=== PATIENT | female | born 1965 | race Caucasian/White ===

== ENCOUNTER 2020-04-21 14:11 | Outpatient (REF) | payer MEDICARE, MEDICAID, SELFPAY ==
[2020-04-21 16:34] LABS: Hemoglobin 12.7 g/dl (12.0-16.0)
[2020-04-21 16:45] LABS: Estimated Average Glucose 134 mg/dL; Hemoglobin A1c % 6.3 %
[2020-04-21 17:07] LABS: Anion Gap 13 (12-20); Blood Urea Nitrogen 9 mg/dL (9-16); Calcium 8.4 mg/dL (8.4-10.2); Carbon Dioxide 32 mmol/L (22-29); Chloride 97 mmol/L (96-108); Estimated Glomerular Filt Rate > 60; Glucose Random 134 mg/dL (60-115); Potassium 4.2 mmol/L (3.3-5.1); Sodium 138 mmol/L (135-145)
[2020-04-23 00:32] LABS: LDL Cholesterol Direct 80 mg/dL (<100)
== END 2020-04-21 14:12 | disposition home or self-care (01) ==
LOC: HO.HMGCLDS 14:11
PROVIDERS: PCP Internal Medicine; Visit Provider Internal Medicine
DX: Z20.822 Contact with and (suspected) exposure to COVID-19 (principal); L03.119 Cellulitis of unspecified part of limb; I87.2 Venous insufficiency (chronic) (peripheral); E13.9 Other specified diabetes mellitus without complications; Z72.0 Tobacco use
CPT/HCPCS: 36415; 80048; 83036; 83721; 85018; U0003; U0005

== ENCOUNTER 2020-05-26 14:23 | Outpatient (RCR) | payer MEDICARE, MEDICAID, SELFPAY | END 2020-09-27 12:52 | disposition home or self-care (01) | LOC: HO.WCC 14:23 | PROVIDERS: Visit Provider Physician Assistant | DX: E10.622 Type 1 diabetes mellitus with other skin ulcer (principal); L97.211 Non-pressure chronic ulcer of right calf limited to breakdown of skin; I87.311 Chronic venous hypertension (idiopathic) with ulcer of right lower extremity; E10.65 Type 1 diabetes mellitus with hyperglycemia; I89.0 Lymphedema, not elsewhere classified; F17.210 Nicotine dependence, cigarettes, uncomplicated; F12.90 Cannabis use, unspecified, uncomplicated; Z71.6 Tobacco abuse counseling; Z72.89 Other problems related to lifestyle; Z79.891 Long term (current) use of opiate analgesic | CPT/HCPCS: 11042; 11045; 15271; 15272; 29581; 97597; 97598; 99212; 99213; Q4101 ==

== ENCOUNTER 2020-12-25 10:08 | Outpatient (RCR) | payer MEDICARE, MEDICAID, SELFPAY | END 2021-01-30 15:59 | disposition home or self-care (01) | LOC: HO.WCC 10:08 | PROVIDERS: PCP Internal Medicine; Visit Provider Physician Assistant | DX: E11.622 Type 2 diabetes mellitus with other skin ulcer (principal); I87.331 Chronic venous hypertension (idiopathic) with ulcer and inflammation of right lower extremity; L97.212 Non-pressure chronic ulcer of right calf with fat layer exposed; I89.0 Lymphedema, not elsewhere classified; E11.65 Type 2 diabetes mellitus with hyperglycemia; F17.210 Nicotine dependence, cigarettes, uncomplicated; F12.90 Cannabis use, unspecified, uncomplicated; Z72.89 Other problems related to lifestyle; J44.9 Chronic obstructive pulmonary disease, unspecified; Z71.6 Tobacco abuse counseling; Z79.4 Long term (current) use of insulin | CPT/HCPCS: 11042; 29581; 99212; 99213 ==

== ENCOUNTER 2021-01-10 14:47 | Outpatient (REF) | payer MEDICARE, MEDICAID, SELFPAY ==
[2021-01-10 16:26] LABS: MANUAL DIFF FLAG NO
[2021-01-10 16:31] LABS: Basophils Absolute Auto 0.1 X10*3/uL (0.0-0.2); Basophils Percent Auto 1.4 % (0-2); Eosinophils Absolute Auto 0.2 X10*3/uL (0.0-0.4); Eosinophils Percent Auto 4.9 % (0-4); Hematocrit 38.7 % (37-47); Hemoglobin 12.9 g/dl (12.0-16.0); Lymphocytes Absolute Auto 1.5 X10*3/uL (1.2-4.9); Lymphocytes Percent Auto 40.4 % (20-40); Mean Corpuscular HGB Conc 33.3 g/dl (31.0-35.0); Mean Corpuscular Hemoglobin 32.8 pg (27.0-33.0); Mean Corpuscular Volume 98.5 fL (80-98); Mean Platelet Volume 9.6 fL (9.4-12.3); Monocytes Absolute Auto 0.4 X10*3/uL (0.1-1.2); Monocytes Percent Auto 9.8 % (2-11); Neutrophils Absolute Auto 1.6 X10*3/uL (2.0-8.3); Neutrophils Percent Auto 43.5 % (45-73); Platelet Count 258 X10*3/uL (160-400); Red Blood Count 3.93 X10*6/uL (4.20-5.50); Red Cell Distribution Width 12.7 % (11.0-16.0); White Blood Count 3.7 X10*3/uL (4.8-10.8)
[2021-01-10 16:42] LABS: Estimated Average Glucose 140 mg/dL; Hemoglobin A1c % 6.5 %
[2021-01-10 16:56] LABS: Alanine Aminotransferase 38 U/L (0-31); Albumin Level 3.9 g/dL (3.5-5.0); Alkaline Phosphatase 170 U/L (39-117); Anion Gap 11 (12-20); Aspartate Amino Transferase 73 U/L (5-31); Bilirubin Total 0.4 mg/dL (0.0-1.0); Blood Urea Nitrogen 12 mg/dL (9-16); Calcium 8.8 mg/dL (8.4-10.2); Carbon Dioxide 30 mmol/L (22-29); Chloride 101 mmol/L (96-108); Estimated Glomerular Filt Rate > 60; Glucose Random 61 mg/dL (60-115); Potassium 4.4 mmol/L (3.3-5.1); Sodium 138 mmol/L (135-145); Total Protein 6.8 g/dL (6.5-8.0)
[2021-01-10 17:17] LABS: TSH reflex Free T4 4.17 uIU/mL (0.32-4.0)
[2021-01-10 17:23] LABS: Vitamin B12 498 pg/mL (200-900)
[2021-01-10 17:52] LABS: Free T4 (Free Thyroxine) 0.83 ng/dL (0.71-1.85)
[2021-01-11 08:00] LABS: LDL Cholesterol Direct 73 mg/dL (<100)
[2021-01-14 13:17] LABS: Vitamin D 25-OH, D2 <4 ng/mL; Vitamin D 25-OH, D3 6 ng/mL; Vitamin D 25-OH, Total 6 ng/mL (30-100)
== END 2021-01-10 14:48 | disposition home or self-care (01) ==
LOC: HO.HMGCLDS 14:47
PROVIDERS: PCP Internal Medicine; Visit Provider Internal Medicine
DX: F41.1 Generalized anxiety disorder (principal); F98.8 Other specified behavioral and emotional disorders with onset usually occurring in childhood and adolescence; F33.2 Major depressive disorder, recurrent severe without psychotic features; F10.20 Alcohol dependence, uncomplicated; E11.40 Type 2 diabetes mellitus with diabetic neuropathy, unspecified; I73.9 Peripheral vascular disease, unspecified; I87.2 Venous insufficiency (chronic) (peripheral); H53.8 Other visual disturbances; Z72.0 Tobacco use; Z79.4 Long term (current) use of insulin
CPT/HCPCS: 36415; 80053; 82306; 82607; 83036; 83721; 84439; 84443; 85025

== ENCOUNTER 2021-07-17 10:30 | Outpatient (REF) | payer MEDICARE, MEDICAID, SELFPAY ==
--- NOTE | ~2021-07-17 | MM_ITS ---
EXAMINATION: BONE DENSITOMETRY CLINICAL INDICATION: Encounter for other screening for malignant neoplasm. COMPARISON: None (current study represents initial baseline exam). TECHNIQUE: Using a [employer] DXA System (software version: 13.1) manufactured by [employer], dual-energy x-ray absorptiometry was performed of the lumbar spine and left hip. The images are of good technical quality. Summary results are attached. FINDINGS: AP SPINE L1-L3 (excluding L4): The data of L1-L4 has been changed to exclude the L4 vertebral body, because degenerative changes at this level may cause overestimation of lumbar spine density. BMD 1.091 g/cm2, Z-score -0.2, T-score -0.7, normal. LEFT FEMUR, NECK: BMD 0.465 g/cm2, Z-score -3.4, T-score -4.1, osteoporosis. LEFT FEMUR, TOTAL: BMD 0.605 g/cm2, Z-score -2.8, T-score -3.2, osteoporosis. IDENTIFIED RISK FACTORS: Low calcium intake, secondary osteoporosis, tobacco use (current smoker), 3 or more drinks per day, menopause. HISTORY OF FRACTURE: None listed. MEDICATIONS: None listed. MM/XR DEXA axial skeleton IMPRESSION: 1. DIAGNOSIS: Osteoporosis based on the lowest T-score value of -4.1 in the femoral neck applying World Health Organization criteria. 2. 10-YEAR FRACTURE RISK PREDICTION, FRAX: According to the guidelines, FRAX calculation should only be performed on patients in the osteopenia bone density category. Therefore, FRAX was not performed on this patient. 3. Treatment Recommendations: NOF guidelines recommend consideration for treatment in postmenopausal women and men age 50 and older presenting with the following: -A hip or vertebral (clinical or morphometric) fracture. -T-score less than or equal to -2.5 at the femoral neck or spine after appropriate evaluation to exclude secondary causes. -Low bone mass at the hip or spine and a 10-year fracture probability by FRAX of greater than or equal to 3% for hip fracture or greater than or equal to 20% for major osteoporotic fracture based on the [place] adapted WHO algorithm. 4. Other Recommendations: All treatment decisions require clinical judgment and consideration of individual patient factors, including patient preferences, comorbidities, previous drug use, risk factors not captured in the FRAX model (e.g. frailty, falls, vitamin D deficiency, increased bone turnover, interval significant decline in bone density) and possible under or overestimation of fracture risk by FRAX. Additional medical evaluation for secondary cause of low bone mineral density may be appropriate. FUTURE SCAN RECOMMENDATION: People with diagnosed cases of osteoporosis or at high risk for fracture should have regular bone mineral density tests. For patients eligible for Medicare, routine testing is allowed once every 2 years. The testing frequency can be increased to one year for patients who have rapidly progressing disease, those who are receiving or discontinuing medical therapy to restore bone mass, or have additional risk factors.
--- NOTE | ~2021-07-17 | MM_ITS ---
EXAMINATION: MM SCREENING DIGITAL BREAST TOMOSYNTHESIS, BILATERAL CLINICAL INFORMATION: Screening. Asymptomatic. The lifetime risk of breast cancer based on the Tyrer-Cuzick Model is 8%. COMPARISON: Mammography: 11/22/2016; outside exam 01/12/2007 and 05/09/2005 ([facility]) TECHNIQUE: Digital breast tomosynthesis is performed in both the craniocaudal and mediolateral oblique views along with computer-aided detection (CAD). Synthesized 2D images are generated from the tomosynthesis. FINDINGS: There are scattered areas of fibroglandular density (ACR BI-RADS breast composition Category b). The breasts are symmetrically smaller and symmetrically mildly increased in attenuation consistent with weight loss. There are scattered shifting fibroglandular parenchymal densities overall similar to prior exam 2017. No developing density or interval mass or architectural abnormality. No abnormal calcifications. The axilla are unremarkable. MM/MM tomosynthesis screening BI IMPRESSION: -Breast symmetrically smaller and mildly increased in attenuation consistent with weight loss. -Otherwise, no significant changes from prior study. ASSESSMENT: BI-RADS 2: Benign RECOMMENDATION: Routine annual mammography screening. This patient's information was entered into a reminder system with a target due date for their next mammogram.
== END 2021-07-17 10:31 | disposition home or self-care (01) ==
LOC: HO.MAMMO 10:30
PROVIDERS: Visit Provider Internal Medicine
DX: Z12.31 Encounter for screening mammogram for malignant neoplasm of breast (principal); Z13.820 Encounter for screening for osteoporosis; Z78.0 Asymptomatic menopausal state; M81.0 Age-related osteoporosis without current pathological fracture
CPT/HCPCS: 77063; 77067; 77080

== ENCOUNTER 2021-08-15 11:11 | Outpatient (REF) | payer MEDICARE, MEDICAID, SELFPAY ==
[2021-08-15 13:44] LABS: MANUAL DIFF FLAG NO
[2021-08-15 13:59] LABS: Basophils Absolute Auto 0.1 X10*3/uL (0.0-0.2); Basophils Percent Auto 1.2 % (0-2); Eosinophils Absolute Auto 0.1 X10*3/uL (0.0-0.4); Eosinophils Percent Auto 2.4 % (0-4); Hematocrit 38.3 % (37.0-47.0); Imm Gran Abs Auto 0.01 X10*3/uL (0.00-0.03); Imm Gran Pct Auto 0.2 % (0.0-0.4); Lymphocytes Absolute Auto 1.6 X10*3/uL (1.2-4.9); Lymphocytes Percent Auto 33.1 % (20-40); Mean Corpuscular HGB Conc 33.9 g/dl (31.0-35.0); Mean Corpuscular Hemoglobin 33.2 pg (27.0-33.0); Mean Corpuscular Volume 97.7 fL (80.0-98.0); Monocytes Absolute Auto 0.5 X10*3/uL (0.1-1.2); Monocytes Percent Auto 9.3 % (2-11); Neutrophils Absolute Auto 2.7 x10*3/uL (2.0-8.3); Neutrophils Percent Auto 53.8 % (45-73); Platelet Count 218 X10*3/uL (160-400); Red Blood Count 3.92 X10*6/uL (4.20-5.50); Red Cell Distribution Width 12.3 % (11.0-16.0)
[2021-08-15 14:20] LABS: TSH reflex Free T4 3.54 uIU/mL (0.32-4.0)
[2021-08-15 14:43] LABS: Alanine Aminotransferase 37 U/L (0-31); Albumin Level 3.9 g/dL (3.5-5.0); Alkaline Phosphatase 176 U/L (39-117); Anion Gap 15 (12-20); Aspartate Amino Transferase 53 U/L (5-31); Bilirubin Total 0.5 mg/dL (0.0-1.0); Blood Urea Nitrogen 7 mg/dL (9-16); Calcium 9.3 mg/dL (8.4-10.2); Carbon Dioxide 28 mmol/L (22-29); Chloride 99 mmol/L (96-108); Cholesterol 204 mg/dL; Estimated Glomerular Filt Rate > 60; Glucose Random 223 mg/dL (60-115); HDL Cholesterol 102 mg/dL; LDL Cholesterol Calculated 78 mg/dl; Potassium 3.7 mmol/L (3.3-5.1); Sodium 138 mmol/L (135-145); Total Protein 6.7 g/dL (6.5-8.0); Triglycerides 122 mg/dL
== END 2021-08-15 11:12 | disposition home or self-care (01) ==
LOC: HO.HMGCLDS 11:11
PROVIDERS: PCP Internal Medicine; Visit Provider Internal Medicine
DX: Z00.01 Encounter for general adult medical examination with abnormal findings (principal); E11.40 Type 2 diabetes mellitus with diabetic neuropathy, unspecified; F33.2 Major depressive disorder, recurrent severe without psychotic features; I87.2 Venous insufficiency (chronic) (peripheral); N39.3 Stress incontinence (female) (male); Z72.0 Tobacco use
CPT/HCPCS: 36415; 80053; 80061; 84443; 85025

== ENCOUNTER 2021-11-06 13:06 | Outpatient (RCR) | payer MEDICARE, MEDICAID, SELFPAY | END 2021-11-23 09:12 | disposition home or self-care (01) | LOC: HO.WCC 13:06 | PROVIDERS: PCP Internal Medicine; Visit Provider Physician Assistant | DX: Z09 Encounter for follow-up examination after completed treatment for conditions other than malignant neoplasm (principal); I87.303 Chronic venous hypertension (idiopathic) without complications of bilateral lower extremity; E11.40 Type 2 diabetes mellitus with diabetic neuropathy, unspecified; J44.9 Chronic obstructive pulmonary disease, unspecified; F17.210 Nicotine dependence, cigarettes, uncomplicated; F11.20 Opioid dependence, uncomplicated; F12.90 Cannabis use, unspecified, uncomplicated; Z87.2 Personal history of diseases of the skin and subcutaneous tissue | CPT/HCPCS: 11042; 29580; 99212; 99213 ==

== ENCOUNTER 2022-02-19 | Outpatient (RCR) | payer MEDICARE, MEDICAID, SELFPAY | END 2022-05-01 16:30 | disposition home or self-care (01) | LOC: HO.WCC | PROVIDERS: PCP Internal Medicine; Visit Provider Physician Assistant | DX: L97.812 Non-pressure chronic ulcer of other part of right lower leg with fat layer exposed (principal); Q82.0 Hereditary lymphedema; I87.2 Venous insufficiency (chronic) (peripheral) | CPT/HCPCS: 11042; 15271; 99212; Q4160 ==

== ENCOUNTER 2022-02-19 12:02 | Outpatient (REF) | payer MEDICARE, MEDICAID, SELFPAY ==
[2022-02-19 14:09] LABS: MANUAL DIFF FLAG NO
[2022-02-19 14:21] LABS: Basophils Absolute Auto 0.1 X10*3/uL (0.0-0.2); Basophils Percent Auto 1.4 % (0-2); Eosinophils Absolute Auto 0.3 X10*3/uL (0.0-0.4); Hemoglobin 12.7 g/dl (12.0-16.0); Imm Gran Abs Auto 0.01 X10*3/uL (0.00-0.03); Imm Gran Pct Auto 0.2 % (0.0-0.4); Lymphocytes Absolute Auto 2.1 X10*3/uL (1.2-4.9); Lymphocytes Percent Auto 44.3 % (20-40); Mean Corpuscular HGB Conc 34.3 g/dl (31.0-35.0); Mean Corpuscular Hemoglobin 33.9 pg (27.0-33.0); Mean Corpuscular Volume 98.7 fL (80.0-98.0); Mean Platelet Volume 9.6 fL (9.4-12.3); Monocytes Absolute Auto 0.5 X10*3/uL (0.1-1.2); Monocytes Percent Auto 9.5 % (2-11); Neutrophils Absolute Auto 1.9 x10*3/uL (2.0-8.3); Neutrophils Percent Auto 38.6 % (45-73); Platelet Count 262 X10*3/uL (160-400); Red Blood Count 3.75 X10*6/uL (4.20-5.50); Red Cell Distribution Width 11.7 % (11.0-16.0); White Blood Count 4.8 X10*3/uL (4.8-10.8)
[2022-02-19 14:34] LABS: Estimated Average Glucose 151 mg/dL; Hemoglobin A1c % 6.9 %
[2022-02-19 14:53] LABS: Creatinine Urine 63.82 mg/dL
[2022-02-19 14:54] LABS: Alanine Aminotransferase 33 U/L (0-31); Alkaline Phosphatase 173 U/L (39-117); Anion Gap 9 (12-20); Aspartate Amino Transferase 50 U/L (5-31); Bilirubin Total 0.5 mg/dL (0.0-1.0); Blood Urea Nitrogen 10 mg/dL (9-16); Calcium 8.8 mg/dL (8.4-10.2); Carbon Dioxide 31 mmol/L (22-29); Chloride 103 mmol/L (96-108); Estimated Glomerular Filt Rate > 60; Glucose Random 156 mg/dL (60-115); Sodium 139 mmol/L (135-145); TSH reflex Free T4 3.46 uIU/mL (0.32-4.0); Total Protein 6.6 g/dL (6.5-8.0)
== END 2022-02-19 12:03 | disposition home or self-care (01) ==
LOC: HO.HMGCLDS 12:02
PROVIDERS: PCP Internal Medicine; Visit Provider Internal Medicine
DX: E11.40 Type 2 diabetes mellitus with diabetic neuropathy, unspecified (principal); I73.9 Peripheral vascular disease, unspecified; F10.20 Alcohol dependence, uncomplicated; F33.2 Major depressive disorder, recurrent severe without psychotic features; F41.1 Generalized anxiety disorder; G47.30 Sleep apnea, unspecified; R79.89 Other specified abnormal findings of blood chemistry; Z79.4 Long term (current) use of insulin; Z72.0 Tobacco use
CPT/HCPCS: 36415; 80053; 82043; 83036; 84443; 85025

== ENCOUNTER 2022-06-21 10:36 | Outpatient (REF) | payer MEDICARE, MEDICAID, SELFPAY ==
[2022-06-21 12:00] LABS: Hematocrit 37.5 % (37.0-47.0); Hemoglobin 12.8 g/dl (12.0-16.0)
[2022-06-21 12:06] LABS: Estimated Average Glucose 137 mg/dL; Hemoglobin A1c % 6.4 %
[2022-06-21 12:30] LABS: Alanine Aminotransferase 22 U/L (0-31); Albumin Level 3.7 g/dL (3.5-5.0); Alkaline Phosphatase 160 U/L (39-117); Anion Gap 15 (12-20); Aspartate Amino Transferase 36 U/L (5-31); Bilirubin Total 0.4 mg/dL (0.0-1.0); Blood Urea Nitrogen 8 mg/dL (9-16); Calcium 9.3 mg/dL (8.4-10.2); Carbon Dioxide 30 mmol/L (22-29); Chloride 100 mmol/L (96-108); Estimated Glomerular Filt Rate > 60; Glucose Random 202 mg/dL (60-115); Potassium 3.6 mmol/L (3.3-5.1); Sodium 141 mmol/L (135-145); Total Protein 6.2 g/dL (6.5-8.0)
[2022-06-21 12:40] LABS: TSH reflex Free T4 5.78 uIU/mL (0.32-4.0)
[2022-06-21 13:13] LABS: Free T4 (Free Thyroxine) 0.85 ng/dL (0.71-1.85)
== END 2022-06-21 10:37 | disposition home or self-care (01) ==
LOC: HO.HMGCLDS 10:36
PROVIDERS: PCP Internal Medicine; Visit Provider Internal Medicine
DX: Z01.818 Encounter for other preprocedural examination (principal); E13.51 Other specified diabetes mellitus with diabetic peripheral angiopathy without gangrene; R94.31 Abnormal electrocardiogram [ECG] [EKG]; I51.7 Cardiomegaly; R79.89 Other specified abnormal findings of blood chemistry; Z72.0 Tobacco use; Z79.4 Long term (current) use of insulin
CPT/HCPCS: 36415; 80053; 83036; 84439; 84443; 85014; 85018

== ENCOUNTER 2022-10-01 12:54 | Outpatient (AMB) | payer MEDICARE, MEDICAID, SELFPAY ==
--- NOTE | 2022-10-01 12:05 | MHC.PC.OV ---
Intake Visit Reasons: 2m t/v Allergies Penicillins [PENICILLINS] Allergy (Unknown, Verified 10/01/22 12:05) nausea Environmental Allergy (Unknown, Uncoded 02/13/21 11:06) Unknown From TYLENOL-CODEINE Allergy (Unknown, Uncoded 02/13/21 11:06) UNKNOWN Medication List - Last Reconciled 10/01/22 by Felicia Gonzalez MD albuterol sulfate 90 mcg/actuation 2 puffs inhalation Q6H PRN 30 days buprenorphine-naloxone 8-2 mg sublingual dextroamphetamine-amphetamine 20 mg ER 20 mg PO DAILY [Diabetic shoes As directed] furosemide (Lasix) 20 mg PO DAILY 90 days insulin aspart U-100 subcut levothyroxine 50 mcg PO DAILY loratadine 10 mg PO DAILY 90 days paroxetine HCl (Paxil) 40 mg PO DAILY triamcinolone acetonide 0.1% 1 appl topical DAILY 30 days Tobacco use date assessed: 10/01/22 Dental Screening Dental Screen Date: 10/01/22 Did you have a dental visit in the last 12 months?: Yes Did you have a dental problem in the last 6 months where you did not have access to dental care?: No Was dental information given to patient?: No HPI 2m t/v HPI Details Patient is a 57-year-old female who was started on levothyroxine 50 mcg and her TSH level came back abnormal She was supposed to have labs done before this visit so we can talk about her hypothyroidism but she did not Reminded patient to have it done as soon as possible and we will book another appointment to go over it. 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 Maternal Grandfather No problems noted. Maternal Grandmother Breast cancer Paternal Grandfather No problems noted. Paternal Grandmother No problems noted. Brother No problems noted. Brother No problems noted. Brother No problems noted. Sister No problems noted. Son No problems noted. Daughter No problems noted. Other Mental health disorder Substance use disorder Social History Housing: House Alcohol intake: current Alcohol intake frequency: 3 or more drinks per day Patient Tobacco Use Status: Current everyday Tobacco user Cigarettes Per Day: 10 e-Cigarette/Vaping Use: Never Used service: No Current occupational status: disabled Cognitive needs: No Hearing needs: No Vision needs: No Questionnaire Thrive Questionnaire Date Thrive assessed: 08/15/21 AUDIT C Alcohol Use Questionnaire (AUDIT-C) 1. How often do you have a drink containing alcohol?: Monthly or less 2. How many drinks containing alcohol do you have on a typical day when you are drinking?: 1 or 2 3. How often do you have six or more drinks on one occasion?: Never Total Score: 1 Score Reviewed/Action Taken: Yes Review of Systems Const Denies chills and Denies fever(s) ENT Denies epistaxis and Denies nasal discharge Card Denies chest pain Resp Denies chest congestion, Denies cough and Denies hemoptysis GI Denies diarrhea and Denies nausea Skin/Breast Denies rash Neuro Reports no additional complaints Psych Reports no additional complaints Endo Reports no additional complaints Physical exam (Primary Care) Tobacco/Smoking Status: Tobacco use Status Tobacco use date assessed 10/01/22 10/01/22 12:06 Patient Tobacco Use Status Current everyday Tobacco 10/01/22 12:06 e-Cigarette/Vaping Use Never Used 10/01/22 12:06 Thrive Assessment: Date of Thrive Assessment Date Thrive assessed 08/15/21 10/01/22 12:06 Telehealth Telehealth Location of provider rendering services: practice address Location of patient: address on file Patient Identification confirmed using: Name, : Yes Telehealth method: voice only Patient verbally consented to treatment: Yes Patient verbally consented to billing insurance company: Yes Patient informed of any privacy concerns related to visit: Yes Minutes spent on Phone/Video with Pt.: 11 Assessment and Plan Assessment & Plan (1) Elevated TSH: Code(s): R79.89 - Other specified abnormal findings of blood chemistry Plan Patient is a 57-year-old female who was started on levothyroxine 50 mcg and her TSH level came back abnormal She was supposed to have labs done before this visit so we can talk about her hypothyroidism but she did not Reminded patient to have it done as soon as possible and we will book another appointment to go over it. Coding Level of Care Code Tele Est Pt Level 3 (37257) Diagnoses Elevated TSH R79.89
== END 2022-10-01 13:37 | disposition home or self-care (01) ==
PROVIDERS: PCP Internal Medicine; Visit Provider Internal Medicine
DX: R79.89 Other specified abnormal findings of blood chemistry (principal)
CPT/HCPCS: 99442

== ENCOUNTER 2023-01-28 12:18 | Outpatient (REF) | payer MEDICARE, MEDICAID, SELFPAY ==
[2023-01-28 14:00] LABS: Estimated Average Glucose 128 mg/dL; Hemoglobin A1c % 6.1 % (<6.0)
[2023-01-28 14:04] LABS: Anion Gap 12 (12-20); Blood Urea Nitrogen 6 mg/dL (9-16); Calcium 8.9 mg/dL (8.4-10.2); Carbon Dioxide 30 mmol/L (22-29); Chloride 104 mmol/L (96-108); Estimated Glomerular Filt Rate > 60; Ethanol 13 mg/dL; Glucose Random 141 mg/dL (60-115); Potassium 3.5 mmol/L (3.3-5.1); Sodium 142 mmol/L (135-145)
[2023-01-28 14:24] LABS: TSH reflex Free T4 4.46 uIU/mL (0.32-4.0)
[2023-01-28 15:02] LABS: Free T4 (Free Thyroxine) 0.87 ng/dL (0.71-1.85)
== END 2023-01-28 12:19 | disposition home or self-care (01) ==
LOC: HO.HMGCLDS 12:18
PROVIDERS: PCP Internal Medicine; Visit Provider Internal Medicine
DX: R79.89 Other specified abnormal findings of blood chemistry (principal); E13.9 Other specified diabetes mellitus without complications; F10.20 Alcohol dependence, uncomplicated
CPT/HCPCS: 36415; 80048; 80307; 83036; 84439; 84443

== ENCOUNTER 2023-07-22 14:37 | Outpatient (AMB) | payer MEDICARE, MEDICAID, SELFPAY ==
--- NOTE | 2023-07-22 14:41 | MHC.PC.OV ---
Vital Signs 07/22/23 14:45 Height 5 ft 1 in Weight 167 lb 2 oz BMI 31.6 BP 110/60 Blood Pressure Location Lt brachial Position Sitting Pulse 91 Pulse Source Pulse Oximeter Pulse Oximetry (%) 91 L Oxygen Delivery Method Room Air Intake Visit Reasons: Annual PE Allergies Penicillins [PENICILLINS] Allergy (Unknown, Verified 10/01/22 12:05) nausea Environmental Allergy (Unknown, Uncoded 02/13/21 11:06) Unknown From TYLENOL-CODEINE Allergy (Unknown, Uncoded 02/13/21 11:06) UNKNOWN Medication List - Last Reconciled 07/22/23 by Felicia Gonzalez MD albuterol sulfate 90 mcg/actuation 2 puffs inhalation Q6H PRN 30 days buprenorphine-naloxone 8-2 mg sublingual dextroamphetamine-amphetamine 20 mg ER 20 mg PO DAILY [Diabetic shoes As directed] furosemide (Lasix) 20 mg PO DAILY 90 days insulin aspart U-100 subcut levothyroxine 50 mcg PO DAILY loratadine 10 mg PO DAILY 90 days paroxetine HCl (Paxil) 40 mg PO DAILY triamcinolone acetonide 0.1% 1 appl topical DAILY 30 days Tobacco use date assessed: 07/22/23 Dental Screening Dental Screen Date: 07/22/23 Did you have a dental visit in the last 12 months?: No Did you have a dental problem in the last 6 months where you did not have access to dental care?: No Was dental information given to patient?: No HPI Annual PE HPI Details Patient is a 56-year-old female with a history of insulin-dependent diabetes, psychiatric illness, peripheral vascular disease, alcoholism, tobacco abuse, noncompliant with regular office visits Came in for physical exam today Patient chronic stasis dermatitis lower extremity both sides Tells me that she will book her own OBGYN visit for regular care Agreed to do colonoscopy, referral placed Mammogram order placed bone density order placed Lab order placed Patient is requesting a letter today stating she had physical exam, provided I have also added STD check and also TB test, 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 [facility] Medical History Cellulitis of lower extremity ADD (attention deficit disorder) Anxiety, generalized Depression, major, severe recurrence Sleep apnea with use of continuous positive airway pressure (CPAP) Alcoholism Tobacco abuse Stress incontinence Diabetes 1.5, managed as type 1 Diabetic neuropathy Peripheral vascular disease Chronic venous insufficiency Surgical History History of carpal tunnel release Family History Father History of heart attack Mother No problems noted. Maternal Grandfather No problems noted. Maternal Grandmother Breast cancer Paternal Grandfather No problems noted. Paternal Grandmother No problems noted. Brother No problems noted. Brother No problems noted. Brother No problems noted. Sister No problems noted. Son No problems noted. Daughter No problems noted. Other Mental health disorder Substance use disorder Social History Housing: House Alcohol intake: current Alcohol intake frequency: 3 or more drinks per day Patient Tobacco Use Status: Current everyday Tobacco user Cigarettes Per Day: 10 e-Cigarette/Vaping Use: Never Used service: No Current occupational status: disabled Cognitive needs: No Hearing needs: No Vision needs: No Questionnaire PHQ-9 Over the last 2 weeks, how often have you been bothered by any of the following problems? 1. Little interest or pleasure in doing things: nearly every day 2. Feeling down, depressed, or hopeless: nearly every day 3. Trouble falling or staying asleep, or sleeping too much: nearly every day 4. Feeling tired or having little energy: nearly every day 5. Poor appetite or overeating: more than half the days 6. Feeling bad about yourself - or that you are a failure or have let yourself or your family down: several days 7. Trouble concentrating on things, such as reading the newspaper or watching television: nearly every day 8. Moving or speaking so slowly that other people could have noticed. Or the opposite - being so fidgety or restless that you have been moving around a lot more than usual: nearly every day 9. Thoughts that you would be better off or of hurting yourself in some way: not at all Total score: 21 Depression Screening Interpretation: Positive Depression Screening Follow-up: Existing condition and In treatment Depression Screening Done: Yes [id number] - PHQ-9 Billing: Yes Source: Developed by Drs. Edgard Moreno, Norah Morris, Angel Harry and colleagues, with an educational anu from [employer]. Thrive Questionnaire Date Thrive assessed: 08/15/21 AUDIT C Alcohol Use Questionnaire (AUDIT-C) 1. How often do you have a drink containing alcohol?: Monthly or less 2. How many drinks containing alcohol do you have on a typical day when you are drinking?: 1 or 2 3. How often do you have six or more drinks on one occasion?: Never Total Score: 1 Score Reviewed/Action Taken: Yes Review of Systems Const Denies chills, Denies fever(s) and Denies headache(s) ENT Denies headache(s), Denies nasal discharge, Denies nasal obstruction, Denies odynophagia and Denies sinus pain Card Denies chest pain at rest and Denies chest pain with activity Resp Denies cough and Denies hemoptysis GI Denies diarrhea, Denies odynophagia, Denies vomiting and Denies hematemesis Reports as per HPI Skin/Breast Reports as per HPI Neuro Denies Neuro-related abnormal movements, Denies Abnormal speech present and Denies headache(s) Psych Denies paranoia Endo Reports as per HPI Lior/Lymph Reports as per HPI Aller/Immun Reports as per HPI Physical exam (Primary Care) Vital Signs: Last Vital Signs Pulse 91 07/22/23 14:45 BP 110/60 07/22/23 14:45 Pulse Ox 91 L 07/22/23 14:45 Oxygen Delivery Method Room Air 07/22/23 14:45 BMI result Body Mass Index 31.6 Tobacco/Smoking Status: Tobacco use Status Tobacco use date assessed 07/22/23 07/22/23 14:49 Patient Tobacco Use Status Current everyday Tobacco 07/22/23 14:41 e-Cigarette/Vaping Use Never Used 07/22/23 14:41 PHQ-9: PHQ-9 Score PHQ-9: Total score 21 07/22/23 15:12 Depression Screening Interpretation: Positive Depression Screening Follow-up: Existing condition and In treatment Thrive Assessment: Date of Thrive Assessment Date Thrive assessed 08/15/21 07/22/23 14:41 Const General: cooperative, comfortable and no acute distress Orientation/consciousness: patient oriented x3 HENMT Other: No teeth in mouth Head: Yes normocephalic and Yes atraumatic Eyes General: appearance normal, both eyes and all related structures Pupils: Equal, round and reactive pupils present EOM: EOMs intact bilaterally Neck Neck: Yes supple and No lymphadenopathy Thyroid: Thyroid normal Lymphatic: no lymphadenopathy noted Chest Breast/axilla palpation: normal palpation of the breasts Resp Effort & Inspection: normal respiratory effort and able to speak in complete sentences Auscultation: clear to auscultation bilaterally Cardio Heart sounds: S1 normal heart sound present and S2 normal heart sound present GI Palpation (GI): Soft to palpation and nontender Auscultation: normal bowel sounds General: Yes no CVA tenderness Back/Spine/Pelvis Back: no CVA tenderness Skin General skin exam: elasticity normal and turgor normal Neuro Other: Balance is off, having difficulty standing with eyes closed, unable to do tandem walk General: patient oriented x3 and gait normal Cranial nerves: Yes Equal, round and reactive pupils present Speech: No Abnormal speech present Extrem Other: Chronic stasis dermatitis both lower extremity, unable to lift both shoulders above head secondary to chronic pain Assessment and Plan Assessment & Plan (1) Encounter for general adult medical examination with abnormal findings: Code(s): Z00.01 - Encounter for general adult medical examination with abnormal findings (2) Age related osteoporosis: Code(s): M81.0 - Age-related osteoporosis without current pathological fracture Qualifiers: Presence of current pathological fracture: unspecified Qualified Code(s): M81.0 - Age-related osteoporosis without current pathological fracture (3) 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: Code(s): Z79.4 - retirement (current) use of insulin (4) Anxiety, generalized: Code(s): F41.1 - Generalized anxiety disorder (5) Depression, major, severe recurrence: Code(s): F33.2 - Major depressive disorder, recurrent severe without psychotic features Qualifiers: Psychotic features: without psychotic features Qualified Code(s): F33.2 - Major depressive disorder, recurrent severe without psychotic features (6) Alcoholism: Code(s): F10.20 - Alcohol dependence, uncomplicated (7) Tobacco abuse: Code(s): Z72.0 - Tobacco use (8) Stress incontinence: Code(s): N39.3 - Stress incontinence (female) (male) (9) Diabetes 1.5, managed as type 1: Code(s): E13.9 - Other specified diabetes mellitus without complications (10) Diabetic neuropathy: Code(s): E11.40 - Type 2 diabetes mellitus with diabetic neuropathy, unspecified Qualifiers: Diabetes mellitus complication detail: diabetic polyneuropathy Diabetes mellitus type: type 2 Qualified Code(s): E11.42 - Type 2 diabetes mellitus with diabetic polyneuropathy (11) Peripheral vascular disease: Code(s): I73.9 - Peripheral vascular disease, unspecified (12) Chronic venous insufficiency: Code(s): I87.2 - Venous insufficiency (chronic) (peripheral) (13) Other specified hypothyroidism: Code(s): E03.8 - Other specified hypothyroidism (14) Screening for STD (sexually transmitted disease): Code(s): Z11.3 - Encounter for screening for infections with a predominantly sexual mode of transmission (15) Immunizations incomplete: Code(s): Z28.39 - Other underimmunization status (16) Shoulder pain, bilateral: Code(s): M25.511 - Pain in right shoulder; M25.512 - Pain in left shoulder Qualifiers: Chronicity: chronic Qualified Code(s): M25.511 - Pain in right shoulder; M25.512 - Pain in left shoulder; G89.29 - Other chronic pain (17) No natural teeth: Code(s): K08.109 - Complete loss of teeth, unspecified cause, unspecified class Plan Patient is a 56-year-old female with a history of insulin-dependent diabetes, psychiatric illness, peripheral vascular disease, alcoholism, tobacco abuse, noncompliant with regular office visits Came in for physical exam today Patient chronic stasis dermatitis lower extremity both sides Tells me that she will book her own OBGYN visit for regular care Agreed to do colonoscopy, referral placed Mammogram order placed bone density order placed Lab order placed Patient is requesting a letter today stating she had physical exam, provided I have also added STD check and also TB test, 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 Orders: Orders Complete Blood Count Auto Diff Today E03.8 - Other specified hypothyroidism, E11.40 - Type 2 diabetes mellitus with diabetic neuropathy, unspecified, E13.9 - Other specified diabetes mellitus without complications, F10.20 - Alcohol dependence, uncomplicated, F33.2 - Major depressive disorder, recurrent severe without psychotic features, F41.1 - Generalized anxiety disorder, I73.9 - Peripheral vascular disease, unspecified, I87.2 - Venous insufficiency (chronic) (peripheral), M81.0 - Age-related osteoporosis without current pathological fracture, N39.3 - Stress incontinence (female) (male), Z00.01 - Encounter for general adult medical examination with abnormal findings, Z72.0 - Tobacco use, Z79.4 - 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 TSH reflex Free T4 Today E03.8 - Other specified hypothyroidism, E11.40 - Type 2 diabetes mellitus with diabetic neuropathy, unspecified, E13.9 - Other specified diabetes mellitus without complications, F10.20 - Alcohol dependence, uncomplicated, F33.2 - Major depressive disorder, recurrent severe without psychotic features, F41.1 - Generalized anxiety disorder, I73.9 - Peripheral vascular disease, unspecified, I87.2 - Venous insufficiency (chronic) (peripheral), M81.0 - Age-related osteoporosis without current pathological fracture, N39.3 - Stress incontinence (female) (male), Z00.01 - Encounter for general adult medical examination with abnormal findings, Z72.0 - Tobacco use, Z79.4 - retirement (current) use of insulin Hemoglobin A1c Today E03.8 - Other specified hypothyroidism, E11.40 - Type 2 diabetes mellitus with diabetic neuropathy, unspecified, E13.9 - Other specified diabetes mellitus without complications, F10.20 - Alcohol dependence, uncomplicated, F33.2 - Major depressive disorder, recurrent severe without psychotic features, F41.1 - Generalized anxiety disorder, I73.9 - Peripheral vascular disease, unspecified, I87.2 - Venous insufficiency (chronic) (peripheral), M81.0 - Age-related osteoporosis without current pathological fracture, N39.3 - Stress incontinence (female) (male), Z00.01 - Encounter for general adult medical examination with abnormal findings, Z72.0 - Tobacco use, Z79.4 - retirement (current) use of insulin MM tomosynthesis screening BI Today M81.0 - Age-related osteoporosis without current pathological fracture, Z12.31 - Encounter for screening mammogram for malignant neoplasm of breast XR DEXA axial skeleton Today M81.0 - Age-related osteoporosis without current pathological fracture, Z12.31 - Encounter for screening mammogram for malignant neoplasm of breast T Spot TB Today Z11.3 - Encounter for screening for infections with a predominantly sexual mode of transmission, Z28.39 - Other underimmunization status Hepatitis B Surface Antibody Today Z11.3 - Encounter for screening for infections with a predominantly sexual mode of transmission, Z28.39 - Other underimmunization status HIV Ab/Ag Today Z11.3 - Encounter for screening for infections with a predominantly sexual mode of transmission, Z28.39 - Other underimmunization status Herpes Simplex Virus Ab IgG Today Z11.3 - Encounter for screening for infections with a predominantly sexual mode of transmission, Z28.39 - Other underimmunization status Varicella IgG Antibody Today Z11.3 - Encounter for screening for infections with a predominantly sexual mode of transmission, Z28.39 - Other underimmunization status Vitamin B12 Today Z11.3 - Encounter for screening for infections with a predominantly sexual mode of transmission, Z28.39 - Other underimmunization status Syphilis Screen Today Z11.3 - Encounter for screening for infections with a predominantly sexual mode of transmission, Z28.39 - Other underimmunization status Comprehensive Met. Panel Today E03.8 - Other specified hypothyroidism, E11.40 - Type 2 diabetes mellitus with diabetic neuropathy, unspecified, E13.9 - Other specified diabetes mellitus without complications, F10.20 - Alcohol dependence, uncomplicated, F33.2 - Major depressive disorder, recurrent severe without psychotic features, F41.1 - Generalized anxiety disorder, I73.9 - Peripheral vascular disease, unspecified, I87.2 - Venous insufficiency (chronic) (peripheral), M81.0 - Age-related osteoporosis without current pathological fracture, N39.3 - Stress incontinence (female) (male), Z00.01 - Encounter for general adult medical examination with abnormal findings, Z72.0 - Tobacco use, Z79.4 - 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 LDL Cholesterol Direct Today E03.8 - Other specified hypothyroidism, E11.40 - Type 2 diabetes mellitus with diabetic neuropathy, unspecified, E13.9 - Other specified diabetes mellitus without complications, F10.20 - Alcohol dependence, uncomplicated, F33.2 - Major depressive disorder, recurrent severe without psychotic features, F41.1 - Generalized anxiety disorder, I73.9 - Peripheral vascular disease, unspecified, I87.2 - Venous insufficiency (chronic) (peripheral), M81.0 - Age-related osteoporosis without current pathological fracture, N39.3 - Stress incontinence (female) (male), Z00.01 - Encounter for general adult medical examination with abnormal findings, Z72.0 - Tobacco use, Z79.4 - 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 Microalbumin, Random (w Creat) Today E03.8 - Other specified hypothyroidism, E11.40 - Type 2 diabetes mellitus with diabetic neuropathy, unspecified, E13.9 - Other specified diabetes mellitus without complications, F10.20 - Alcohol dependence, uncomplicated, F33.2 - Major depressive disorder, recurrent severe without psychotic features, F41.1 - Generalized anxiety disorder, I73.9 - Peripheral vascular disease, unspecified, I87.2 - Venous insufficiency (chronic) (peripheral), M81.0 - Age-related osteoporosis without current pathological fracture, N39.3 - Stress incontinence (female) (male), Z00.01 - Encounter for general adult medical examination with abnormal findings, Z72.0 - Tobacco use, Z79.4 - retirement (current) use of insulin Hepatitis C Antibody Today Z11.3 - Encounter for screening for infections with a predominantly sexual mode of transmission, Z28.39 - Other underimmunization status Vitamin D 25-OH (D2 and D3) Today Z11.3 - Encounter for screening for infections with a predominantly sexual mode of transmission, Z28.39 - Other underimmunization status Coding Level of Care Code Est Pt Prev Care 40-64y(79438) Diagnoses Encounter for general adult medical examination with abnormal findings Z00.01 Age related osteoporosis, unspecified pathological fracture presence M81.0 Presence of current pathological fracture: unspecified retirement (current) use of insulin Z79.4 Anxiety, generalized F41.1 Severe episode of recurrent major depressive disorder, without psychotic features F33.2 Psychotic features: without psychotic features Alcoholism F10.20 Tobacco abuse Z72.0 Stress incontinence N39.3 Diabetes 1.5, managed as type 1 E13.9 Diabetic polyneuropathy associated with type 2 diabetes mellitus E11.42 Diabetes mellitus complication detail: diabetic polyneuropathy Diabetes mellitus type: type 2 Peripheral vascular disease I73.9 Chronic venous insufficiency I87.2 Other specified hypothyroidism E03.8 Screening for STD (sexually transmitted disease) Z11.3 Immunizations incomplete Z28.39 Chronic pain of both shoulders M25.511; M25.512; G89.29 Chronicity: chronic No natural teeth K08.109
[2023-07-22 14:45] VITALS: BP 110/60; PULSE 91; O2SAT 91; BMI 31.6
== END 2023-07-22 15:24 | disposition home or self-care (01) ==
PROVIDERS: PCP Internal Medicine; Visit Provider Internal Medicine
DX: Z00.01 Encounter for general adult medical examination with abnormal findings (principal); Z79.4 Long term (current) use of insulin; F33.2 Major depressive disorder, recurrent severe without psychotic features; F10.20 Alcohol dependence, uncomplicated; E13.9 Other specified diabetes mellitus without complications; E11.42 Type 2 diabetes mellitus with diabetic polyneuropathy; I73.9 Peripheral vascular disease, unspecified; M81.0 Age-related osteoporosis without current pathological fracture; F41.1 Generalized anxiety disorder; Z72.0 Tobacco use; N39.3 Stress incontinence (female) (male); I87.2 Venous insufficiency (chronic) (peripheral)
CPT/HCPCS: 99396

== ENCOUNTER 2023-07-22 15:08 | Outpatient (REF) | payer MEDICARE, MEDICAID, SELFPAY ==
[2023-07-22 16:21] LABS: MANUAL DIFF FLAG NO
[2023-07-22 16:38] LABS: Basophils Percent Auto 1.2 % (0-2); Eosinophils Absolute Auto 0.1 X10*3/uL (0.0-0.4); Eosinophils Percent Auto 3.1 % (0-4); Hematocrit 37.2 % (37.0-47.0); Hemoglobin 12.7 g/dl (12.0-16.0); Imm Gran Abs Auto 0.01 X10*3/uL (0.00-0.03); Imm Gran Pct Auto 0.3 % (0.0-0.4); Lymphocytes Absolute Auto 1.3 X10*3/uL (1.2-4.9); Mean Corpuscular HGB Conc 34.1 g/dl (31.0-35.0); Mean Corpuscular Hemoglobin 33.4 pg (27.0-33.0); Mean Corpuscular Volume 97.9 fL (80.0-98.0); Mean Platelet Volume 9.4 fL (9.4-12.3); Monocytes Absolute Auto 0.3 X10*3/uL (0.1-1.2); Monocytes Percent Auto 10.1 % (2-11); Neutrophils Absolute Auto 1.5 x10*3/uL (2.0-8.3); Neutrophils Percent Auto 46.3 % (45-73); Platelet Count 233 X10*3/uL (160-400); Red Cell Distribution Width 11.5 % (11.0-16.0); White Blood Count 3.3 X10*3/uL (4.8-10.8)
[2023-07-22 16:46] LABS: Estimated Average Glucose 146 mg/dL; Hemoglobin A1c % 6.7 % (<6.0)
[2023-07-22 17:55] LABS: TSH reflex Free T4 2.37 uIU/mL (0.32-4.0)
[2023-07-22 17:57] LABS: Alanine Aminotransferase 24 U/L (0-31); Alkaline Phosphatase 139 U/L (39-117); Anion Gap 15 (12-20); Aspartate Amino Transferase 47 U/L (5-31); Bilirubin Total 0.5 mg/dL (0.0-1.0); Blood Urea Nitrogen 9 mg/dL (9-16); Calcium 9.2 mg/dL (8.4-10.2); Carbon Dioxide 30 mmol/L (22-29); Chloride 100 mmol/L (96-108); Estimated Glomerular Filt Rate > 60; Potassium 3.6 mmol/L (3.3-5.1); Sodium 141 mmol/L (135-145)
[2023-07-22 17:58] LABS: Vitamin B12 339 pg/mL (200-900)
[2023-07-22 19:17] LABS: Glucose Random 57 mg/dL (60-115)
[2023-07-22 19:59] LABS: Creatinine Urine 14.94 mg/dL; Microalbumin Urine < 5.0 mg/L
[2023-07-23 03:36] LABS: Syphilis Screen Nonreactive (Nonreactive)
[2023-07-23 04:17] LABS: HBS Num1 0.33 mIU/mL (0-7.99); HIV AB/AG Nonreactive (Nonreactive); HIV Num 1 0.04 S/CO (0.00-0.99); ~HepC Num1 0.09 S/CO (0.00-0.79); ~Hepatitis B Surface Antibody NONREACTIVE (Nonreactive); ~Hepatitis C Antibody Nonreactive (Nonreactive)
[2023-07-23 09:14] LABS: LDL Cholesterol Direct 55 mg/dL (<100)
[2023-07-23 12:23] LABS: Herpes Simplex Type 1 IgG 2.58 index
[2023-07-28 15:37] LABS: Vitamin D 25-OH, D2 <4 ng/mL; Vitamin D 25-OH, D3 <4 ng/mL; Vitamin D 25-OH, Total <4 ng/mL (30-100)
== END 2023-07-22 15:09 | disposition home or self-care (01) ==
LOC: HO.HMGCLDS 15:08
PROVIDERS: PCP Internal Medicine; Visit Provider Internal Medicine
DX: Z00.01 Encounter for general adult medical examination with abnormal findings (principal); Z11.4 Encounter for screening for human immunodeficiency virus [HIV]; M81.0 Age-related osteoporosis without current pathological fracture; F41.1 Generalized anxiety disorder; F33.2 Major depressive disorder, recurrent severe without psychotic features; F10.20 Alcohol dependence, uncomplicated; N39.3 Stress incontinence (female) (male); E11.40 Type 2 diabetes mellitus with diabetic neuropathy, unspecified; I73.9 Peripheral vascular disease, unspecified; I87.2 Venous insufficiency (chronic) (peripheral); E03.8 Other specified hypothyroidism; Z28.39 Other underimmunization status; Z72.0 Tobacco use; Z79.4 Long term (current) use of insulin
CPT/HCPCS: 36415; 80053; 82306; 82570; 82607; 83036; 83721; 84443; 85025; 86695; 86696; 86706; 86780; 86787; 86803; 87389

== ENCOUNTER 2023-08-27 09:49 | Outpatient (AMB) | payer MEDICARE, MEDICAID, SELFPAY ==
[2023-08-27 09:57] VITALS: BP 130/62; BMI 30.6
--- NOTE | 2023-08-27 09:57 | A.OFFPC_ITS ---
Vital Signs 08/27/23 09:57 Height 5 ft 1 in Weight 162 lb BMI 30.6 BP 130/62 Blood Pressure Location Rt brachial Position Sitting Intake Visit Reasons: Electricity Form Allergies Penicillins [PENICILLINS] Allergy (Unknown, Verified 08/27/23 10:01) nausea Environmental Allergy (Unknown, Uncoded 02/13/21 11:06) Unknown From TYLENOL-CODEINE Allergy (Unknown, Uncoded 02/13/21 11:06) UNKNOWN Medication List - Last Reconciled 08/27/23 by Felicia Gonzalez MD albuterol sulfate 90 mcg/actuation 2 puffs inhalation Q6H PRN 30 days buprenorphine-naloxone 8-2 mg sublingual cholecalciferol (vitamin D3) 25 mcg PO DAILY 90 days dextroamphetamine-amphetamine 20 mg ER 20 mg PO DAILY [Diabetic shoes As directed] furosemide (Lasix) 20 mg PO DAILY 90 days insulin aspart U-100 subcut levothyroxine 50 mcg PO DAILY loratadine 10 mg PO DAILY 90 days paroxetine HCl (Paxil) 40 mg PO DAILY triamcinolone acetonide 0.1% 1 appl topical DAILY 30 days Tobacco use date assessed: 08/27/23 Dental Screening Dental Screen Date: 08/27/23 Did you have a dental visit in the last 12 months?: No Did you have a dental problem in the last 6 months where you did not have access to dental care?: No Was dental information given to patient?: No HPI Electricity Form HPI Details Patient is a 58-year-old female who suffers from insulin-dependent diabetes mellitus and sleep apnea Patient need electricity to use her CPAP machine and also do stool her insulin Patient says that she is disabled and can not afford to pay electricity bill She bring in form to sign to be exempt it from electricity bill Which I have filled for the patient. She is taking Lasix for chronic lower extremity edema Patient suffer from peripheral vascular disease. Her other medications are levothyroxine and loratadine. Patient was instructed to come in for regular follow-up appointments every 3 months Since she also need electricity exempted forms signed every 3 months as well. [facility] Medical History Cellulitis of lower extremity ADD (attention deficit disorder) Anxiety, generalized Depression, major, severe recurrence Sleep apnea with use of continuous positive airway pressure (CPAP) Alcoholism Tobacco abuse Stress incontinence Diabetes 1.5, managed as type 1 Diabetic neuropathy Peripheral vascular disease Chronic venous insufficiency Surgical History History of carpal tunnel release Family History Father History of heart attack Mother No problems noted. Maternal Grandfather No problems noted. Maternal Grandmother Breast cancer Paternal Grandfather No problems noted. Paternal Grandmother No problems noted. Brother No problems noted. Brother No problems noted. Brother No problems noted. Sister No problems noted. Son No problems noted. Daughter No problems noted. Other Mental health disorder Substance use disorder Social History Housing: House Alcohol intake: current Alcohol intake frequency: 3 or more drinks per day Patient Tobacco Use Status: Current everyday Tobacco user Cigarettes Per Day: 10 e-Cigarette/Vaping Use: Never Used service: No Current occupational status: disabled Cognitive needs: No Hearing needs: No Vision needs: No Questionnaire Thrive Questionnaire Date Thrive assessed: 08/15/21 AUDIT C Alcohol Use Questionnaire (AUDIT-C) 1. How often do you have a drink containing alcohol?: Monthly or less 2. How many drinks containing alcohol do you have on a typical day when you are drinking?: 1 or 2 3. How often do you have six or more drinks on one occasion?: Never Total Score: 1 Score Reviewed/Action Taken: Yes Review of Systems Const Denies chills and Denies fever(s) ENT Denies epistaxis and Denies nasal discharge Card Denies chest pain Resp Denies chest congestion, Denies cough and Denies hemoptysis GI Denies diarrhea and Denies nausea Skin/Breast Denies rash Neuro Reports no additional complaints Psych Reports no additional complaints Endo Reports no additional complaints Physical exam (Primary Care) Vital Signs: Last Vital Signs BP 130/62 08/27/23 09:57 BMI result Body Mass Index 30.6 Tobacco/Smoking Status: Tobacco use Status Tobacco use date assessed 08/27/23 08/27/23 10:01 Patient Tobacco Use Status Current everyday Tobacco 08/27/23 10:01 e-Cigarette/Vaping Use Never Used 08/27/23 10:01 Thrive Assessment: Date of Thrive Assessment Date Thrive assessed 08/15/21 08/27/23 10:01 Const General: cooperative, comfortable and no acute distress Orientation/consciousness: patient oriented x3 HENMO Head: Yes normocephalic Eyes General: appearance normal, both eyes and all related structures Neck Neck: Yes supple Resp Effort & Inspection: normal respiratory effort, no cough and no stridor Cardio Rhythm: regular rhythm Heart sounds: S1 normal heart sound present and S2 normal heart sound present Skin General skin exam: turgor normal Neuro General: patient oriented x3, tone normal and moves all extremities Assessment and Plan Assessment & Plan (1) halfway (current) use of insulin: Code(s): 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 (2) Diabetes 1.5, managed as type 1: Code(s): E13.9 - Other specified diabetes mellitus without complications (3) Diabetic neuropathy: Code(s): E11.40 - Type 2 diabetes mellitus with diabetic neuropathy, unspecified Qualifiers: Diabetes mellitus type: type 2 Diabetes mellitus complication detail: diabetic polyneuropathy Qualified Code(s): E11.42 - Type 2 diabetes mellitus with diabetic polyneuropathy (4) Peripheral vascular disease: Code(s): I73.9 - Peripheral vascular disease, unspecified (5) Chronic venous insufficiency: Code(s): I87.2 - Venous insufficiency (chronic) (peripheral) (6) Chronic venous stasis dermatitis of both lower extremities: Code(s): I87.2 - Venous insufficiency (chronic) (peripheral) (7) Sleep apnea with use of continuous positive airway pressure (CPAP): Code(s): G47.30 - Sleep apnea, unspecified Plan Patient is a 58-year-old female who suffers from insulin-dependent diabetes mellitus and sleep apnea Patient need electricity to use her CPAP machine and also do stool her insulin Patient says that she is disabled and can not afford to pay electricity bill She bring in form to sign to be exempt it from electricity bill Which I have filled for the patient. She is taking Lasix for chronic lower extremity edema Patient suffer from peripheral vascular disease. Her other medications are levothyroxine and loratadine. Patient was instructed to come in for regular follow-up appointments every 3 months Since she also need electricity exempted forms signed every 3 months as well. Medications: Refilled levothyroxine 50 mcg PO DAILY 90 tabs 0RF loratadine 10 mg PO DAILY 90 days 90 tabs 0RF furosemide (Lasix) 20 mg PO DAILY 90 days 90 tabs 0RF L03.119 - Cellulitis of unspecified part of limb Coding Level of Care Code Est Pt Level 4 (44697) Complex EM visit Add On G2211 Diagnoses halfway (current) use of insulin Z79.4 Diabetes 1.5, managed as type 1 E13.9 Diabetic polyneuropathy associated with type 2 diabetes mellitus E11.42 Diabetes mellitus type: type 2 Diabetes mellitus complication detail: diabetic polyneuropathy Peripheral vascular disease I73.9 Chronic venous insufficiency I87.2 Chronic venous stasis dermatitis of both lower extremities I87.2 Sleep apnea with use of continuous positive airway pressure (CPAP) G47.30
== END 2023-08-27 10:18 | disposition home or self-care (01) ==
LOC: HO.HMGC 09:49
PROVIDERS: PCP Internal Medicine; Visit Provider Internal Medicine
DX: E11.42 Type 2 diabetes mellitus with diabetic polyneuropathy (principal); Z79.4 Long term (current) use of insulin; I73.9 Peripheral vascular disease, unspecified; I87.2 Venous insufficiency (chronic) (peripheral); G47.30 Sleep apnea, unspecified
CPT/HCPCS: 99214; G2211

== ENCOUNTER 2024-07-27 14:30 | Outpatient (AMB) | payer MEDICARE, MEDICAID, SELFPAY ==
--- NOTE | 2024-07-27 14:32 | MHC.PC.OV ---
Vital Signs 07/27/24 14:33 Height 5 ft 1 in Weight 168 lb 4 oz BMI 31.8 BP 128/66 Blood Pressure Location Rt brachial Position Sitting Pulse 88 Pulse Source Pulse Oximeter Pulse Oximetry (%) 96 Oxygen Delivery Method Room Air Intake Visit Reasons: Annual PE Allergies Penicillins [PENICILLINS] Allergy (Unknown, Verified 07/27/24 14:33) nausea Environmental Allergy (Unknown, Uncoded 07/27/24 14:33) Unknown From TYLENOL-CODEINE Allergy (Unknown, Uncoded 07/27/24 14:33) UNKNOWN Medication List - Last Reconciled 07/27/24 by Felicia Gonzalez MD albuterol sulfate 90 mcg/actuation 2 puffs inhalation Q6H PRN 30 days buprenorphine-naloxone 8-2 mg sublingual cholecalciferol (vitamin D3) 25 mcg PO DAILY 90 days dextroamphetamine-amphetamine 20 mg ER 20 mg PO DAILY [Diabetic shoes As directed] insulin aspart U-100 subcut levothyroxine 50 mcg PO DAILY loratadine 10 mg PO DAILY 90 days paroxetine HCl (Paxil) 40 mg PO DAILY triamcinolone acetonide 0.1% 1 appl topical DAILY 30 days Tobacco use date assessed: 07/27/24 Dental Screening Dental Screen Date: 07/27/24 Did you have a dental visit in the last 12 months?: No Did you have a dental problem in the last 6 months where you did not have access to dental care?: No Was dental information given to patient?: Patient declined HPI Annual PE HPI Details History of Present Illness - The patient is a 59-year-old female presenting for a physical examination and a prescription refill for Paxil. - Depression: The patient requires a refill for Paxil, which suggests ongoing management of depression. She indicates that she becomes 'mean and ugly' without the medication, implying mood disturbances when off medication. Patient has missed several psychiatric appointments and she was discharged from practice, patient says that she lost her telephone and she could not remember the appointment dates - Diabetes Mellitus with diabetic neuropathy, need for diabetic shoes was discussed, indicating ongoing management of diabetes. Management of diabetes through endocrinology - Vision Issues: Need to see solar installer pv. - Dizziness and Balance Disorders: The patient experiences frequent dizziness, notably affecting her balance, potentially related to diabetic neuropathy and alcohol related nerve damage - Alcohol Use: The patient admits to ongoing alcohol consumption with an expressed intention to quit. - Past Smoking: Recently ceased smoking and switched to vaping, though awareness about its harms is acknowledged. - patient also suffers from chronic stasis dermatitis bilateral lower extremity Health Maintenance - Needs to schedule a mammogram, as the last one was in 2021. - Discussion of the need for an OBGYN visit, with consideration of scheduling terms. - Quit smoking but has started vaping, intends to reduce or quit vaping due to knowledge of harmful effects. - book appointment with solar installer pv and rheumatology nurse - Encouragement to use a calendar to track medical appointments. - due for colonoscopy, patient goes to [facility] auto phone installer, and tells me that she will book her own appointment Diagnostic results - Sodium: 137 mEq/L - Potassium: 3.9 mEq/L - Chloride: 98 mEq/L - LDL: 61 mg/dL - TSH: 2.7 ?IU/mL Patient Instructions - Schedule and attend requested healthcare appointments including mammogram and eye examination. - Refrain from using vaping products. - Track and manage appointments using a calendar for better adherence. - Continue diabetes management and obtain diabetic shoes. Review of Systems - General: No fever no chills - Neurological: No headaches - Ear nose throat: No sore throat no hearing difficulty no ear pain - Cardiovascular: No syncope, no chest pain, no palpitations - Gastrointestinal: No nausea vomiting or diarrhea - Endocrine: No polyuria polydipsia no heat intolerance - Genitourinary: No dysuria - Skin: No new complaints Physical Exam General: Cooperative, healthy appearing, comfortable, no acute distress Orientation: Patient oriented x3 Head: Normal to inspection Ears: Within normal limit visually Nose: Normal external nose present Face and sinus: Normal facial exam Eyes: Appearance normal, extraocular movement intact pupils reactive; patient reports floaters in the left eye and significant vision impairment Neck: Normal visual inspection and supple Respiratory: Normal respiratory effort and able to speak in complete sentences. Clear to auscultation, no stridor Cardiovascular: S1 and S2 RRR; Breast exam benign GI: Normal to inspection. Soft to palpation and nontender Skin: Chronic skin changes lower extremity bilateral Neuro: Patient oriented x3, motor Romberg failed, tandem failed Extremities: Difficulty raising arm due to chronic limited range of motion shoulders [facility] Medical History Cellulitis of lower extremity ADD (attention deficit disorder) Anxiety, generalized Depression, major, severe recurrence Sleep apnea with use of continuous positive airway pressure (CPAP) Alcoholism Tobacco abuse Stress incontinence Diabetes 1.5, managed as type 1 Diabetic neuropathy Peripheral vascular disease Chronic venous insufficiency Surgical History History of carpal tunnel release Family History Father History of heart attack Mother No problems noted. Maternal Grandfather No problems noted. Maternal Grandmother Breast cancer Paternal Grandfather No problems noted. Paternal Grandmother No problems noted. Brother No problems noted. Brother No problems noted. Brother No problems noted. Sister No problems noted. Son No problems noted. Daughter No problems noted. Other Mental health disorder Substance use disorder Social History Housing: House Alcohol intake: current Alcohol intake frequency: 3 or more drinks per day Patient Tobacco Use Status: Current everyday Tobacco user Cigarettes Per Day: 10 e-Cigarette/Vaping Use: Never Used service: No Current occupational status: disabled Cognitive needs: No Hearing needs: No Vision needs: No Questionnaire PHQ-9 Over the last 2 weeks, how often have you been bothered by any of the following problems? 1. Little interest or pleasure in doing things: more than half the days 2. Feeling down, depressed, or hopeless: nearly every day 3. Trouble falling or staying asleep, or sleeping too much: nearly every day 4. Feeling tired or having little energy: nearly every day 5. Poor appetite or overeating: more than half the days 6. Feeling bad about yourself - or that you are a failure or have let yourself or your family down: more than half the days 7. Trouble concentrating on things, such as reading the newspaper or watching television: nearly every day 8. Moving or speaking so slowly that other people could have noticed. Or the opposite - being so fidgety or restless that you have been moving around a lot more than usual: not at all 9. Thoughts that you would be better off or of hurting yourself in some way: not at all Total score: 18 Depression Screening Interpretation: Positive Depression Screening Done: Yes 36768 - PHQ-9 Billing: Yes Source: Developed by Drs. Edgard Moreno, Norah Morris, Angel Harry and colleagues, with an educational anu from [employer]. Thrive Questionnaire Date Thrive assessed: 07/27/24 I am a: Patient What is your living situation today?: I have a steady place to live Within the past 12 months, did the food you bought not last and you didn't have the money to get more?: Never true Within the past 12 months, did you worry whether your food would run out before you got money to buy more?: Never true Do you have trouble paying for medicines?: No Do you have trouble getting transportation to medical appointments?: No Do you have trouble paying your heating and electricity bill?: No Do you have trouble taking care of your child, family member or friend?: No Do you have trouble with day-to-day activities such as bathing, preparing meals, shopping, managing finances, etc.?: Yes Are you currently unemployed and looking for a job?: No Are you interested in more education?: No Please select the resources that you would like help with: None Currently or been in a relationship where the following occur: No concerns reported THRIVE Score: 0 AUDIT C Alcohol Use Questionnaire (AUDIT-C) 1. How often do you have a drink containing alcohol?: 4 or more times a week 2. How many drinks containing alcohol do you have on a typical day when you are drinking?: 3 or 4 3. How often do you have six or more drinks on one occasion?: Daily or almost daily Total Score: 9 Score Reviewed/Action Taken: Yes MONIQUE-7 AMB Questionnaire MONIQUE-7 Date MONIQUE - 7 assessed: 07/27/24 Feeling nervous, anxious, or on edge: 2 = More than half the days Not being able to stop or control worryin = Not at all Worrying too much about different things: 0 = Not at all Trouble relaxin = Several days Being so restless that it is hard to sit still: 0 = Not at all Becoming easily annoyed or irritable: 3 = Nearly every day Feeling afraid as if something awful might happen: 0 = Not at all Total MONIQUE-7 score (0-4 normal; 5-9 mild; 10-14 moderate; 15-21 severe): 6 Source: Developed by Drs. Edgard Moreno, Norah Morris, Angel Harry and colleagues, with an educational anu from [employer]. MONIQUE-7 Assessment Billing MONIQUE-7 Assessment Tool: MONIQUE-7 Assessment 75940 Physical exam (Primary Care) Vital Signs: Last Vital Signs Pulse 88 07/27/24 14:33 BP 128/66 07/27/24 14:33 Pulse Ox 96 07/27/24 14:33 Oxygen Delivery Method Room Air 07/27/24 14:33 BMI result Body Mass Index 31.8 Tobacco/Smoking Status: Tobacco use Status Tobacco use date assessed 07/27/24 07/27/24 14:34 Patient Tobacco Use Status Current everyday Tobacco 07/27/24 14:34 e-Cigarette/Vaping Use Never Used 07/27/24 14:34 PHQ-9: PHQ-9 Score PHQ-9: Total score 18 07/27/24 15:02 Depression Screening Interpretation: Positive Thrive Assessment: Date of Thrive Assessment Date Thrive assessed 07/27/24 07/27/24 14:34 Currently or been in a relationship where the following occur: No concerns reported Coding Level of Care Code Est Pt Level 4 (88100) Est Pt Prev Care 40-64y(63923) Diagnoses Encounter for general adult medical examination with abnormal findings Z00.01 Diabetes 1.5, managed as type 1 E13.9 Diabetic polyneuropathy associated with type 2 diabetes mellitus E11.42 Diabetes mellitus complication detail: diabetic polyneuropathy Diabetes mellitus type: type 2 Peripheral vascular disease I73.9 Chronic venous insufficiency I87.2 Stress incontinence N39.3 Tobacco abuse Z72.0 Alcoholism F10.20 Severe episode of recurrent major depressive disorder, without psychotic features F33.2 Psychotic features: without psychotic features Anxiety, generalized F41.1 custodial (current) use of insulin Z79.4 Additional Codes MONIQUE-7 Assessment Billing - MONIQUE-7 Assessment Tool: MONIQUE-7 Assessment 29507 ([id number]) PHQ-9 - 19842 - PHQ-9 Billing: Yes ([id number]) Assessment & Plan Assessment & Plan (1) Encounter for general adult medical examination with abnormal findings: Code(s): Z00.01 - Encounter for general adult medical examination with abnormal findings Category: Medical (2) Diabetes 1.5, managed as type 1: Code(s): E13.9 - Other specified diabetes mellitus without complications Category: Medical (3) Diabetic neuropathy: Code(s): E11.40 - Type 2 diabetes mellitus with diabetic neuropathy, unspecified Category: Medical Qualifiers: Diabetes mellitus complication detail: diabetic polyneuropathy Diabetes mellitus type: type 2 Qualified Code(s): E11.42 - Type 2 diabetes mellitus with diabetic polyneuropathy (4) Peripheral vascular disease: Code(s): I73.9 - Peripheral vascular disease, unspecified Category: Medical (5) Chronic venous insufficiency: Code(s): I87.2 - Venous insufficiency (chronic) (peripheral) Category: Medical (6) Stress incontinence: Code(s): N39.3 - Stress incontinence (female) (male) Category: Medical (7) Tobacco abuse: Code(s): Z72.0 - Tobacco use Category: Medical (8) Alcoholism: Code(s): F10.20 - Alcohol dependence, uncomplicated Category: Medical (9) Depression, major, severe recurrence: Code(s): F33.2 - Major depressive disorder, recurrent severe without psychotic features Category: Medical Qualifiers: Psychotic features: without psychotic features Qualified Code(s): F33.2 - Major depressive disorder, recurrent severe without psychotic features (10) Anxiety, generalized: Code(s): F41.1 - Generalized anxiety disorder Category: Medical (11) 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 - Depression: The patient requires a refill for Paxil, which suggests ongoing management of depression. She indicates that she becomes 'mean and ugly' without the medication, implying mood disturbances when off medication. Patient has missed several psychiatric appointments and she was discharged from practice, patient says that she lost her telephone and she could not remember the appointment dates - Diabetes Mellitus with diabetic neuropathy, need for diabetic shoes was discussed, indicating ongoing management of diabetes. Management of diabetes through endocrinology - Vision Issues: Need to see solar installer pv. - Dizziness and Balance Disorders: The patient experiences frequent dizziness, notably affecting her balance, potentially related to diabetic neuropathy and alcohol related nerve damage - Alcohol Use: The patient admits to ongoing alcohol consumption with an expressed intention to quit. - Past Smoking: Recently ceased smoking and switched to vaping, though awareness about its harms is acknowledged. - patient also suffers from chronic stasis dermatitis bilateral lower extremity - suffers from chronic urine incontinence and is on diapers Health Maintenance - Needs to schedule a mammogram, as the last one was in 2021. - Discussion of the need for an OBGYN visit, with consideration of scheduling terms. - Quit smoking but has started vaping, intends to reduce or quit vaping due to knowledge of harmful effects. - book appointment with solar installer pv and rheumatology nurse - Encouragement to use a calendar to track medical appointments. - due for colonoscopy, patient goes to [facility] auto phone installer, and tells me that she will book her own appointment Diagnostic results - Sodium: 137 mEq/L - Potassium: 3.9 mEq/L - Chloride: 98 mEq/L - LDL: 61 mg/dL - TSH: 2.7 ?IU/mL Patient Instructions - Schedule and attend requested healthcare appointments including mammogram and eye examination. - Refrain from using vaping products. - Track and manage appointments using a calendar for better adherence. - Continue diabetes management and obtain diabetic shoes. Orders: Orders Complete Blood Count Auto Diff Today E11.42 - Type 2 diabetes mellitus with diabetic polyneuropathy, E13.9 - Other specified diabetes mellitus without complications, F10.20 - Alcohol dependence, uncomplicated, F33.2 - Major depressive disorder, recurrent severe without psychotic features, F41.1 - Generalized anxiety disorder, F98.8 - Other specified behavioral and emotional disorders with onset usually occurring in childhood and adolescence, G47.30 - Sleep apnea, unspecified, I73.9 - Peripheral vascular disease, unspecified, I87.2 - Venous insufficiency (chronic) (peripheral), N39.3 - Stress incontinence (female) (male), Z00.01 - Encounter for general adult medical examination with abnormal findings, Z72.0 - Tobacco use, Z79.4 - termite control representative (current) use of insulin TSH reflex Free T4 Today E11.42 - Type 2 diabetes mellitus with diabetic polyneuropathy, E13.9 - Other specified diabetes mellitus without complications, F10.20 - Alcohol dependence, uncomplicated, F33.2 - Major depressive disorder, recurrent severe without psychotic features, F41.1 - Generalized anxiety disorder, F98.8 - Other specified behavioral and emotional disorders with onset usually occurring in childhood and adolescence, G47.30 - Sleep apnea, unspecified, I73.9 - Peripheral vascular disease, unspecified, I87.2 - Venous insufficiency (chronic) (peripheral), N39.3 - Stress incontinence (female) (male), Z00.01 - Encounter for general adult medical examination with abnormal findings, Z72.0 - Tobacco use, Z79.4 - termite control representative (current) use of insulin Vitamin B12 Today E11.42 - Type 2 diabetes mellitus with diabetic polyneuropathy, E13.9 - Other specified diabetes mellitus without complications, F10.20 - Alcohol dependence, uncomplicated, F33.2 - Major depressive disorder, recurrent severe without psychotic features, F41.1 - Generalized anxiety disorder, F98.8 - Other specified behavioral and emotional disorders with onset usually occurring in childhood and adolescence, G47.30 - Sleep apnea, unspecified, I73.9 - Peripheral vascular disease, unspecified, I87.2 - Venous insufficiency (chronic) (peripheral), N39.3 - Stress incontinence (female) (male), Z00.01 - Encounter for general adult medical examination with abnormal findings, Z72.0 - Tobacco use, Z79.4 - termite control representative (current) use of insulin Hemoglobin A1c Today E13.9 - Other specified diabetes mellitus without complications MM tomosynthesis screening BI Today Z12.31 - Encounter for screening mammogram for malignant neoplasm of breast Comprehensive Met. Panel Today E11.42 - Type 2 diabetes mellitus with diabetic polyneuropathy, E13.9 - Other specified diabetes mellitus without complications, F10.20 - Alcohol dependence, uncomplicated, F33.2 - Major depressive disorder, recurrent severe without psychotic features, F41.1 - Generalized anxiety disorder, F98.8 - Other specified behavioral and emotional disorders with onset usually occurring in childhood and adolescence, G47.30 - Sleep apnea, unspecified, I73.9 - Peripheral vascular disease, unspecified, I87.2 - Venous insufficiency (chronic) (peripheral), N39.3 - Stress incontinence (female) (male), Z00.01 - Encounter for general adult medical examination with abnormal findings, Z72.0 - Tobacco use, Z79.4 - termite control representative (current) use of insulin LDL Cholesterol Direct Today E11.42 - Type 2 diabetes mellitus with diabetic polyneuropathy, E13.9 - Other specified diabetes mellitus without complications, F10.20 - Alcohol dependence, uncomplicated, F33.2 - Major depressive disorder, recurrent severe without psychotic features, F41.1 - Generalized anxiety disorder, F98.8 - Other specified behavioral and emotional disorders with onset usually occurring in childhood and adolescence, G47.30 - Sleep apnea, unspecified, I73.9 - Peripheral vascular disease, unspecified, I87.2 - Venous insufficiency (chronic) (peripheral), N39.3 - Stress incontinence (female) (male), Z00.01 - Encounter for general adult medical examination with abnormal findings, Z72.0 - Tobacco use, Z79.4 - custodial (current) use of insulin Vitamin D 25-OH (D2 and D3) Today E11.42 - Type 2 diabetes mellitus with diabetic polyneuropathy, E13.9 - Other specified diabetes mellitus without complications, F10.20 - Alcohol dependence, uncomplicated, F33.2 - Major depressive disorder, recurrent severe without psychotic features, F41.1 - Generalized anxiety disorder, F98.8 - Other specified behavioral and emotional disorders with onset usually occurring in childhood and adolescence, G47.30 - Sleep apnea, unspecified, I73.9 - Peripheral vascular disease, unspecified, I87.2 - Venous insufficiency (chronic) (peripheral), N39.3 - Stress incontinence (female) (male), Z00.01 - Encounter for general adult medical examination with abnormal findings, Z72.0 - Tobacco use, Z79.4 - custodial (current) use of insulin Referrals M[employer]ESS OPERATOR Referral Z01.419 - Encounter for gynecological examination (general) (routine) without abnormal findings Medications: New [diabetic shoes] As directed 1 ea 0RF E11.42 - Type 2 diabetes mellitus with diabetic polyneuropathy Changed From paroxetine HCl (Paxil) 40 mg PO DAILY To paroxetine HCl (Paxil) 40 mg PO DAILY 90 days 90 tabs 0RF Refilled paroxetine HCl (Paxil) 40 mg PO DAILY 90 days 90 tabs 0RF
[2024-07-27 14:33] VITALS: BP 128/66; PULSE 88; O2SAT 96; BMI 31.8
== END 2024-07-27 15:10 | disposition home or self-care (01) ==
LOC: HO.HMCC 14:31
PROVIDERS: PCP Internal Medicine; Visit Provider Internal Medicine
DX: Z00.01 Encounter for general adult medical examination with abnormal findings (principal); E11.42 Type 2 diabetes mellitus with diabetic polyneuropathy; F10.20 Alcohol dependence, uncomplicated; F33.2 Major depressive disorder, recurrent severe without psychotic features; Z79.4 Long term (current) use of insulin; I73.9 Peripheral vascular disease, unspecified; I87.2 Venous insufficiency (chronic) (peripheral); N39.3 Stress incontinence (female) (male); Z72.0 Tobacco use; F41.1 Generalized anxiety disorder

== ENCOUNTER → 2024-07-27 14:30 | Outpatient (BNVA) | payer MEDICARE, MEDICAID, SELFPAY | PROVIDERS: PCP Internal Medicine; Visit Provider Internal Medicine | DX: Z00.01 Encounter for general adult medical examination with abnormal findings (principal); E11.42 Type 2 diabetes mellitus with diabetic polyneuropathy; I73.9 Peripheral vascular disease, unspecified; I87.2 Venous insufficiency (chronic) (peripheral); N39.3 Stress incontinence (female) (male); F10.20 Alcohol dependence, uncomplicated; F33.2 Major depressive disorder, recurrent severe without psychotic features; F41.1 Generalized anxiety disorder; Z79.4 Long term (current) use of insulin | CPT/HCPCS: 96127; 99212; 99396 ==

== ENCOUNTER 2024-11-02 20:43 | Inpatient (IN) | payer MEDICARE, MEDICAID, SELFPAY ==
[2024-11-02 20:45] VITALS: BP 126/68; PULSE 105; RESP 14; TEMP 36.6; O2SAT 99; BMI 31.7
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
[2024-11-02 21:16] LABS: MANUAL DIFF FLAG NO
[2024-11-02 21:18] LABS: Hematocrit 33.2 % (37.0-47.0); Hemoglobin 11.7 g/dl (12.0-16.0); Imm Gran Abs Auto 0.06 X10*3/uL (0.00-0.03); Imm Gran Pct Auto 0.7 % (0.0-0.4); Lymphocytes Absolute Auto 1.0 X10*3/uL (1.2-4.9); Mean Corpuscular HGB Conc 35.2 g/dl (31.0-35.0); Mean Corpuscular Hemoglobin 33.6 pg (27.0-33.0); Mean Corpuscular Volume 95.4 fL (80.0-98.0); NRBC Abs Auto 0.000 X10*3/uL (0.0-0.012); NRBC Pct Auto 0.0 /100WBC (0.0-0.2); Platelet Count 222 X10*3/uL (160-400); Red Blood Count 3.48 X10*6/uL (4.20-5.50); White Blood Count 9.1 X10*3/uL (4.8-10.8)
[2024-11-02 21:42] LABS: Alanine Aminotransferase 12 U/L (0-31); Albumin Level 4.0 g/dL (3.5-5.0); Alkaline Phosphatase 179 U/L (39-117); Anion Gap 18 (12-20); Aspartate Amino Transferase 18 U/L (5-31); Blood Urea Nitrogen 7 mg/dL (9-16); Calcium 9.0 mg/dL (8.4-10.2); Carbon Dioxide 25 mmol/L (22-29); Chloride 92 mmol/L (96-108); Creatinine Clr Calc Pharmacy 90.1; Estimated Glomerular Filt Rate > 60; Magnesium 1.6 mg/dL (1.6-2.6); Potassium 2.7 mmol/L (3.3-5.1); Sodium 132 mmol/L (135-145); Total Protein 7.0 g/dL (6.5-8.0)
[2024-11-02 21:54] LABS: Procalcitonin 0.11 ng/mL
[2024-11-02] MEDS: vancomycin/NS 2,000 MG/500 ML PLAST..BAG 250 MG IV (22:06)
[2024-11-02] MEDS: Potassium Chloride ER 20 MEQ TAB.ER.PRT 40 MEQ PO (22:06)
[2024-11-02] MEDS: Silver Sulfadiazine 1 % Cream 20 GM TUBE 1 APPL TOPICAL (22:22)
--- NOTE | 2024-11-02 22:24 | PC.NURSE ---
Dr. Cedillo currently at bedside for wound debridement, patient in the process of being admitted to the hospital.
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
[2024-11-02 22:29] VITALS: PULSE 110
[2024-11-02] MEDS: PHENobarbitaL sodium 130 MG/ML IM ONCE 191 MG IM (22:50)
--- NOTE | 2024-11-02 22:56 | PC.RT ---
pt refuses to wear our cpap tonight. She has one at home but says its very filty. I recommended to her cleaning it so she can wear it. It has been more then 2 yrs since she has worn it
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
[2024-11-02 23:13] LABS: Reflex Lactate? Lactic Acid Added
[2024-11-03] VITALS (16 sets, daily range): BP systolic 88–128; BP diastolic 37–63; PULSE 89–130; RESP 13–22; TEMP 36.1–38.2; O2SAT 96–100
--- NOTE | 2024-11-03 | ECG_ITS ---
Test Reason : tachycardia Blood Pressure : */* mmHG Vent. Rate : 97 BPM Atrial Rate : 97 BPM P-R Int : 168 ms QRS Dur : 80 ms QT Int : 368 ms P-R-T Axes : 54 76 52 degrees QTcB Int : 467 ms Normal sinus rhythm Normal ECG When compared with ECG of 03-Nov-2024 03:19, No significant change was found Referred By: Sigrid López Electronically Signed By: MILTON DELAROSA MD
[2024-11-03 00:08] LABS: ~Lactic Acid-LAB USE ONLY 3.8 mmol/L (0.5-2.0)
[2024-11-03] MEDS: Buprenorphine/Naloxone 8/2 mg TAB.SUBL 1 TAB SUBLINGUAL (00:20)
[2024-11-03 01:51] LABS: Reflex Lactate? 2 Y
[2024-11-03] MEDS: Potassium Chloride Packet 20 MEQ PACKET 40 MEQ PO (02:04)
[2024-11-03] MEDS: PHENobarbitaL sodium 130 MG/ML VIAL IM Q3Hx2 143 MG IM ×2 (02:05→05:24)
[2024-11-03] MEDS: Lactated Ringers 1,000 ML 999 ML IV (03:49)
[2024-11-03 03:59] LABS: Glucose, Whole Blood 219 mg/dL (60-115)
[2024-11-03 04:05] LABS: ~Lactic Acid-LAB USE ONLY 1.5 mmol/L (0.5-2.0)
[2024-11-03] MEDS: Albumin Human 25 % 50 ML 100 ML IV (04:25)
--- NOTE | 2024-11-03 04:32 | PC.NURSE ---
Pts blood glucose 219. 8 units Lispro ordered per hospitalist along with sliding scale. Pt adamant that she wants to use her own pump. Maribel RAILROAD CRANE OPERATOR at bedside to speak pt. Plan for pt to have POC blood glucose QIDACHS and to use own insulin pump for boluses.
--- NOTE | 2024-11-03 04:42 | PM.EVENT ---
Event Note Date of Service: 11/03/24 Event Note: Pt has been permitted to keep her insulin pump on and because she has short acting insulin and manages the pump based on her BG levels, no SSI is needed. ACHS BG checks are ordered. This was reviewed with nursing at pt's bedside. Pt may go into alcohol withdrawal in the next 2-3 days and if so, it is questionable if pt will still be able to manage her insulin pump. SHe gets stressed and anxious about someone taking over her insulin regimen. Pt reassured and will need close monitoring overall. Time Spent With Patient Time: Total time managing care of this patient today ____ minutes.
[2024-11-03 04:49] LABS: MANUAL DIFF FLAG NO
[2024-11-03 04:55] LABS: Hematocrit 31.0 % (37.0-47.0); Hemoglobin 11.1 g/dl (12.0-16.0); Imm Gran Abs Auto 0.02 X10*3/uL (0.00-0.03); Imm Gran Pct Auto 0.3 % (0.0-0.4); Lymphocytes Absolute Auto 0.7 X10*3/uL (1.2-4.9); Mean Corpuscular HGB Conc 35.8 g/dl (31.0-35.0); Mean Corpuscular Hemoglobin 34.2 pg (27.0-33.0); Mean Corpuscular Volume 95.4 fL (80.0-98.0); NRBC Abs Auto 0.000 X10*3/uL (0.0-0.012); NRBC Pct Auto 0.0 /100WBC (0.0-0.2); Platelet Count 217 X10*3/uL (160-400); Red Blood Count 3.25 X10*6/uL (4.20-5.50); White Blood Count 7.0 X10*3/uL (4.8-10.8)
[2024-11-03 05:21] LABS: B Type Natriuretic Peptide 85 pg/mL (<100)
[2024-11-03] MEDS: Albumin Human 25 % 100 ML 133.33 ML IV ×2 (05:22→06:19)
[2024-11-03 05:24] LABS: Alanine Aminotransferase 6 U/L (0-31); Albumin Level 3.1 g/dL (3.5-5.0); Alkaline Phosphatase 131 U/L (39-117); Anion Gap 14 (12-20); Aspartate Amino Transferase 26 U/L (5-31); Blood Urea Nitrogen 5 mg/dL (9-16); Calcium 8.0 mg/dL (8.4-10.2); Carbon Dioxide 23 mmol/L (22-29); Chloride 102 mmol/L (96-108); Creatinine Clr Calc Pharmacy 109.5; Estimated Glomerular Filt Rate > 60; Magnesium 1.5 mg/dL (1.6-2.6); Potassium 3.9 mmol/L (3.3-5.1); Sodium 135 mmol/L (135-145); Total Protein 5.6 g/dL (6.5-8.0)
[2024-11-03 07:24] LABS: Glucose, Whole Blood 250 mg/dL (60-115)
--- NOTE | 2024-11-03 07:37 | PHA.PROG ---
Admission Date/Time: November 02, 2024 22:05 Indication: Skin Weight in k.204 kg Adjusted body weight in Kg: [place]ade body weight in Kg: Obesity Dosing Indication % IBW: Serum Creatinine - Last 168 Hours 11/02/24 11/03/24 21:06 03:44 Creatinine 0.62 0.51 Estimated CrCl and GFR - Last 168 Hours 11/02/24 11/03/24 21:06 03:44 Estim Creat Clear Calc 90.1 109.5 Estimated GFR > 60 > 60 Vancomycin Loading Dose: 2000 Current Vancomycin Dosing Regimen: 1250 mg Q12H Vancomycin Monitoring using AUC goal of 400 - 600 range with trough as surrogate marker: Predicted AUC: 488 and trough: 14.1 Date and Time for next Vancomycin Level to be drawn: 11/04 @0800 Pharmacist Comments on Vancomycin Plan: Vancomycin dosing will take advantage of [employer] as a clinical decision support tool that uses Bayesian modeling to calculate individual patient's pharmacokinetic parameters and forecast the patient's drug concentration time course with the target goal AUC 24 range of 400 - 600 mg/L/hr.
--- NOTE | 2024-11-03 08:00 | ECG_ITS ---
Test Reason : tachycardia Blood Pressure : */* mmHG Vent. Rate : 124 BPM Atrial Rate : 124 BPM P-R Int : 162 ms QRS Dur : 72 ms QT Int : 308 ms P-R-T Axes : 60 82 55 degrees QTcB Int : 442 ms Sinus tachycardia Cannot rule out Anterior infarct , age undetermined Abnormal ECG No previous ECGs available Referred By: Sigrid López Electronically Signed By: MILTON DELAROSA MD
--- NOTE | 2024-11-03 08:22 | PHA.MEDREC ---
Addendum entered by Chase Mclain PharmD 11/03/24 08:30: reviewed Original Note: Pharmacy Consult ? Medication Reconciliation Pharmacy has completed the medication reconciliation. Spoke to patient to confirm med list. Patient states she is not taking Vitamin D3 25 mcg, Loratadine 10 mg and Triamcinolone acet 0.1%. Patient confirmed she has a MiniMed insulin pump and she uses Novolog max 60 units daily, and Lantus 14 units PRN when insulin pump fails. Patient states she takes Lorazepam, however could give me the dose she takes. left off med list due to no claim history. Patient states she last had her medications yesterday.
[2024-11-03 09:10] LABS: Anion Gap 15 (12-20); Blood Urea Nitrogen 5 mg/dL (9-16); Calcium 7.8 mg/dL (8.4-10.2); Carbon Dioxide 21 mmol/L (22-29); Chloride 104 mmol/L (96-108); Creatinine Clr Calc Pharmacy 98.0; Estimated Glomerular Filt Rate > 60; Potassium 4.1 mmol/L (3.3-5.1); Sodium 136 mmol/L (135-145)
--- NOTE | 2024-11-03 09:29 | MHC.RECOVRN ---
TW met with pt in to verify Suboxone dosage. On approach pt is laying in bed, eyes closed, respirations even and unlabored. Pt does not appear to be in acute distress and awakens to name being called but closes eyes immediately after Pt is slow to respond, however, reports taking a total of 20mg Suboxone daily. I take 2 strips twice a day and a half in the afternoon . TW relayed information to Ruth Gibbs NP. Awaiting orders. TW will attempt to meet with pt this afternoon to offer support and resources in relation to Addiction Medicine consult placed for AUD.
[2024-11-03] MEDS: Thiamine HCL 100 MG in 0.9 % Sodium Chloride 100 ML 202 MG IV (09:36)
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
--- NOTE | 2024-11-03 11:01 | PC.NURSE ---
Addendum entered by Eliud Ortega RN 11/03/24 19:18: pt found to be checking her blood sugar and bolusing herself with her insulin pump without telling staff. pt was educated by RN and MD prior and this RN informed pt of hospitals policy, that pt must report administration of insulin to staff. MD was informed of situation. Addendum entered by Eliud Ortega RN 11/03/24 16:25: md spoke with pt at bedside and informed there's an order that has to be placed in the MAR for staff to document what pt boluses herself with. per MD this RN will document what pt boluses in this note for the shift. at 1616 pt bolused total 7.4u Addendum entered by Eliud Ortega RN 11/03/24 12:38: pt refusing hospital insulin stating she will only use her insulin in her pump. md informed. all info of insulin pump aquired. pt stated she does not have extra vials and has enough insulin in the pump for hospital stay. MD to assess and speak with pt. pharmacy was contacted and stated MD has to place orders for basal rate and bolus amt. insulin pump info: medtronic, minimed, paradigm insulin pump basal rate 0.55 ; REF [id number] [id number] SN - [id number] info on back of insulin pump pt now compliant with checking POC with hospital equipment Original Note: confirmed suboxone doses and times with pharmacy. per pharmacy ok to administer 1300 dose and 2100 dose is ordered correctly
[2024-11-03 12:19] LABS: Glucose, Whole Blood 289 mg/dL (60-115)
[2024-11-03] MEDS: Buprenorphine/Naloxone 4/1 mg FILM 1 FILM SUBLINGUAL (12:52)
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
--- NOTE | 2024-11-03 15:31 | MHC.RECOVRN ---
TW attempted to meet with pt to offer resources/support after consult placed to Addiction Medicine for AUD. Pt remains in bed, asleep, in no acute distress. Respirations are even and unlabored. Will attempt to meet with pt again later tonight or in the morning. TW available for questions, concern, or support as needed
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
[2024-11-03 16:11] LABS: Glucose, Whole Blood 351 mg/dL (60-115)
[2024-11-03 20:39] LABS: Glucose, Whole Blood 285 mg/dL (60-115)
--- NOTE | 2024-11-04 00:53 | PC.RT ---
pt refused to wear cpap for [address] order will be dc'd
[2024-11-04 02:55] VITALS: BP 143/68; PULSE 90; RESP 17; TEMP 36.4; O2SAT 93
[2024-11-04 07:20] LABS: Glucose, Whole Blood 162 mg/dL (60-115)
[2024-11-04 08:00] VITALS: BP 107/51; PULSE 100; RESP 20; TEMP 37.1; O2SAT 92
[2024-11-04 08:45] LABS: Creatinine Clr Calc Pharmacy 65.7; Estimated Glomerular Filt Rate > 60
[2024-11-04 09:10] VITALS: BP 114/54; PULSE 104
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
[2024-11-04 11:48] LABS: Glucose, Whole Blood 218 mg/dL (60-115)
[2024-11-04] MEDS: Buprenorphine/Naloxone 4/1 mg FILM 1 FILM SUBLINGUAL (12:52)
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
[2024-11-04] MEDS: 0.9 % Sodium Chloride Flush 3 ML SYRINGE IVFLUSH ×2 (14:57→20:18)
[2024-11-04] MEDS: Silver Sulfadiazine 1 % Cream 20 GM TUBE 1 APPL TOPICAL (14:58)
[2024-11-04 15:37] VITALS: BP 125/61; PULSE 91; RESP 18; TEMP 36.3; O2SAT 99
[2024-11-04 16:21] LABS: Glucose, Whole Blood 257 mg/dL (60-115)
[2024-11-04] MEDS: oxyCODONE HCl Immed Release 5 MG TABLET PO (16:37)
[2024-11-04 19:13] VITALS: BP 118/56; PULSE 98; RESP 16; TEMP 36; O2SAT 92
[2024-11-04 20:15] LABS: Glucose, Whole Blood 264 mg/dL (60-115)
[2024-11-05 02:55] VITALS: BP 121/59; PULSE 90; RESP 16; TEMP 36.1; O2SAT 92
[2024-11-05 07:44] VITALS: BP 129/63; PULSE 87; RESP 18; TEMP 36; O2SAT 95
[2024-11-05 07:53] LABS: Glucose, Whole Blood 199 mg/dL (60-115)
[2024-11-05 10:50] LABS: Creatinine Clr Calc Pharmacy 33.2; Estimated Glomerular Filt Rate 31
[2024-11-05] MEDS: Silver Sulfadiazine 1 % Cream 20 GM TUBE 1 APPL TOPICAL (11:03)
[2024-11-05 11:29] LABS: Glucose, Whole Blood 276 mg/dL (60-115)
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
--- NOTE | 2024-11-05 12:36 | MHC.CM.PN ---
IMM 11/03/24 Patient is discharged to home with Douglas RHODES for Wound management. She has arranged for transportation home.
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
[2024-11-05] MEDS: Buprenorphine/Naloxone 4/1 mg FILM 1 FILM SUBLINGUAL (13:20)
--- NOTE | 2024-11-05 15:07 | PC.NURSE ---
Patient declined take home narcan. Reports having plenty at home. [employer] OPERATOR Ruth Gibbs notified.
[2024-11-05] MEDS: oxyCODONE HCl Immed Release 5 MG TABLET PO (15:09)
--- NOTE | 2024-11-05 15:23 | PC.NURSE ---
Pt Medicated x 1 prior to Dc for ride home per MD. 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 Understands d/c.
[2024-11-05 16:00] VITALS: BP 132/60; PULSE 91; RESP 16; TEMP 36.2; O2SAT 96
== END 2024-11-05 16:15 | disposition home health service (06) | DRG 934 ==
LOC: HO.ED 21:19 → HO.EDOVER 22:11 → HO.S3 11-03 07:39
PROVIDERS: Nurse Practitioner Family; Physician Assistant Medical; Admitting Provider Student in an Organized Health Care Education/Training Program; Emergency Provider Emergency Medicine; PCP Internal Medicine; Visit Provider Hospitalist
DX: T24.192A Burn of first degree of multiple sites of left lower limb, except ankle and foot, initial encounter (principal); T31.11 Burns involving 10-19% of body surface with 10-19% third degree burns; F11.20 Opioid dependence, uncomplicated; Y90.6 Blood alcohol level of 120-199 mg/100 ml; T25.211A Burn of second degree of right ankle, initial encounter; T21.12XA Burn of first degree of abdominal wall, initial encounter; F10.20 Alcohol dependence, uncomplicated; G47.33 Obstructive sleep apnea (adult) (pediatric); K21.9 Gastro-esophageal reflux disease without esophagitis; F98.8 Other specified behavioral and emotional disorders with onset usually occurring in childhood and adolescence; Z96.41 Presence of insulin pump (external) (internal); I87.8 Other specified disorders of veins; X12.XXXA Contact with other hot fluids, initial encounter; E10.9 Type 1 diabetes mellitus without complications; Z87.891 Personal history of nicotine dependence; Z79.4 Long term (current) use of insulin; Z79.890 Hormone replacement therapy; Z79.899 Other long term (current) drug therapy
CPT/HCPCS: 36415; 80048; 80053; 80202; 80307; 82550; 82565; 82947; 83605; 83735; 83880; 84145; 85025; 85652; 86140; 87040; 93005; 99285; J0616; J1171; J1650; J1808; J2270; J2543; J2560; J3373; J3374; J3411; J7120; P9047; S9485

== ENCOUNTER 2024-11-02 22:05 | Outpatient (BNV) | payer MEDICARE, MEDICAID, SELFPAY | END 2024-11-03 08:00 | PROVIDERS: Admitting Provider Student in an Organized Health Care Education/Training Program; Emergency Provider Emergency Medicine; PCP Internal Medicine; Visit Provider Internal Medicine Cardiovascular Disease | DX: R00.0 Tachycardia, unspecified (principal) | CPT/HCPCS: 93010 ==

== ENCOUNTER → 2024-11-02 22:05 | Outpatient (BNV) | payer MEDICARE, MEDICAID, SELFPAY | PROVIDERS: Admitting Provider Student in an Organized Health Care Education/Training Program; Emergency Provider Emergency Medicine; PCP Internal Medicine; Visit Provider Nurse Practitioner Psychiatric/Mental Health | DX: F10.90 Alcohol use, unspecified, uncomplicated (principal) | CPT/HCPCS: 99221 ==

== ENCOUNTER → 2024-11-02 22:05 | Outpatient (BNV) | payer MEDICARE, MEDICAID, SELFPAY | PROVIDERS: Admitting Provider Student in an Organized Health Care Education/Training Program; Emergency Provider Emergency Medicine; PCP Internal Medicine; Visit Provider Surgery | DX: T24.292A Burn of second degree of multiple sites of left lower limb, except ankle and foot, initial encounter (principal); T21.22XA Burn of second degree of abdominal wall, initial encounter; T24.201A Burn of second degree of unspecified site of right lower limb, except ankle and foot, initial encounter | CPT/HCPCS: 99222; 99232 ==

== ENCOUNTER → 2024-11-02 22:05 | Outpatient (BNV) | payer MEDICARE, MEDICAID, SELFPAY | PROVIDERS: Admitting Provider Student in an Organized Health Care Education/Training Program; Emergency Provider Emergency Medicine; PCP Internal Medicine; Visit Provider Nurse Practitioner Family | DX: T25.211A Burn of second degree of right ankle, initial encounter (principal); T21.12XA Burn of first degree of abdominal wall, initial encounter; T24.202A Burn of second degree of unspecified site of left lower limb, except ankle and foot, initial encounter; T24.201A Burn of second degree of unspecified site of right lower limb, except ankle and foot, initial encounter; F10.20 Alcohol dependence, uncomplicated; I73.9 Peripheral vascular disease, unspecified; I87.2 Venous insufficiency (chronic) (peripheral) | CPT/HCPCS: 99223; 99499 ==

== ENCOUNTER → 2024-11-08 23:59 | Outpatient (BNV) | payer MEDICARE, MEDICAID, SELFPAY | PROVIDERS: Visit Provider Internal Medicine | DX: E10.51 Type 1 diabetes mellitus with diabetic peripheral angiopathy without gangrene (principal); E10.49 Type 1 diabetes mellitus with other diabetic neurological complication; E03.9 Hypothyroidism, unspecified | CPT/HCPCS: G0180 ==

== ENCOUNTER 2024-12-09 16:12 | Outpatient (REF) | payer MEDICARE, MEDICAID, SELFPAY | END 2024-12-09 16:13 | disposition home or self-care (01) | LOC: HO.MAMMO 16:12 | PROVIDERS: PCP Internal Medicine; Visit Provider Internal Medicine | DX: Z12.31 Encounter for screening mammogram for malignant neoplasm of breast (principal) | CPT/HCPCS: 77063; 77067 ==

== ENCOUNTER → 2024-12-09 16:15 | Outpatient (BNV) | payer MEDICARE, MEDICAID, SELFPAY | PROVIDERS: PCP Internal Medicine; Visit Provider Internal Medicine | DX: Z12.31 Encounter for screening mammogram for malignant neoplasm of breast (principal) | CPT/HCPCS: 77063; 77067 ==